=== PATIENT | male | born 1970 | race Caucasian/White ===

== ENCOUNTER 2019-12-21 14:05 | Outpatient (REF) | payer MEDICAID, SELFPAY ==
--- NOTE | 2019-12-21 14:30 | FL_ITS ---
EXAMINATION: MODIFIED BARIUM SWALLOW CLINICAL INFORMATION: Dysphagia COMPARISON: None TECHNIQUE: The barium swallow study is performed with speech pathology. The patient ingested varying consistencies of barium under fluoroscopic observation in the lateral projection. FINDINGS: Normal control of the liquid bolus with inversion of the epiglottis. No laryngeal penetration or aspiration. Total fluoroscopy time: 2 minutes. DAP: 2.206 IMPRESSION: Unremarkable swallow study. Correlate with the speech pathologist report for full details.
--- NOTE | 2019-12-21 16:09 | MHC.MBSS ---
Modified Barium Swallow Study Speech MBSS Documentation Start: 12/21/19 15:12 Freq: Status: Active Protocol: Activity Type Activity Date Activity User E-Sign Co-Sign Detail Recorded Client Recorded Date Recorded By Document 12/21/19 15:12 [email or web address] [id number] 12/21/19 15:58 [email or web address] 12/21/19 15:12 Adult Speech and Language Evaluation Referring provider Patricia Rocha MD Reason for Referral Dysphagia, unspecified Type of Treatment 28245 Modified Barium Swallow Study Date Patient First Became Aware of 12/21/19 Symptoms: Medical Diagnosis Cerebral Palsy, Muscular Dystrophy, HTN, GERD Primary Speech Language Diagnosis R13.11 Oral Phase Dysphagia Speech, Language, Cognition difficulties Understanding, Swallowing Dysphagia Specific Oral Phase Dysphagia Comments Pt is a 49 year old male with a history significant for cerebral palsy , muscular dystrophy, GERD , and HTN. Pt is nonverbal but understands Estonian and ASL. Pt was accompanied by his brother and an painting contractor was present during the evaluation . This evaluation was completed in conjunction with the radiologist. Per caregiver report, pt is able to self feed and has been coughing on both liquids and solids since August. An MBSS was recommended to rule in/out aspiration. Pt was given a sip of thin liquid in which no aspiration or penetration was observed. Timely AP transport and adequate labial seal were noted. Pt was given a bite of applesauce mixed with barium, a pureed solid. Interlabial escape was noted in addition to trace amounts of oral residue . Upon trials of ground/mech altered solids mixed with barium the following was noted: anterior spillage, prolonged oral phase, disorganized mastication, piecemeal deglutition, and moderate oral residue. Pt was observed to independently double swallow and was able to clear oral residue with a liquid wash. The same observations were made upon trials of regular solids, a cracker topped with barium paste. Pt was observed to independently take very large bites of solids (i.e. the entire cracker) even when told to take small bites. Based on the results of this evaluation, pt presents with moderate oral dysphagia characterized by disorganized mastication, prolonged oral phase, prolonged AP transport, anterior spillage to the vermilion border, piecemeal deglutition, and moderate oral residue. Pt's pharyngeal phase was noted to be WFL . No aspiration or penetration were visualized. Pre-eval Risk for Aspiration Reduced Cognition Pre-evaluation Dietary Consistencies Regular Pre-eval Liquid Intake Thin SL Adult Medical History Acid Reflux, Cerebral Palsy Recent Hospitalizations: If yes, enter No admitting diagnosis Respiratory Needs/Oxygen Delivery Room Air Patient Orientation Unable to Assess History What is your current employment status? Unknown What is the highest level of education Unknown/Unable you have completed? to report Assistive Devices in use Wheelchair Oral Motor, Secretions and Volitional Cough Oral Motor Exam Oral Motor Exam Unremarkable Facial Symmetry Symmetrical Facial Movement Controlled Mouth Occlusion Normal Oral-Facial Teeth Characteristics Intact/Normal Tongue Size Normal Clinical Observations An very brief oral mechanism exam was conducted. Pt was unable to comprehend directions to smile, stick his tongue out, or produce a volitional cough. Pt appeared to have natural dentition in adequate condition for mastication. Oral Phase Chopped/Advanced Food -Oral Phase Results ABN: Oral Phase Labial Seal A/P Transit Lingual Movement Rotary Masticatio n Premature Spillage Oral Residue Ground/Mechanically Altered Food -Oral Phase Results ABN: Oral Phase Labial Seal A/P Transit Lingual Movement Oral Residue WNL: Rotary Masticatio n Premature Spillage Pureed Food -Oral Phase Results ABN: Labial Seal WNL: Oral Phase A/P Transit Lingual Movement Rotary Masticatio n Premature Spillage Oral Residue Thin Liquid via Cup -Oral Phase Results WNL: Oral Phase Labial Seal A/P Transit Lingual Movement Rotary Masticatio n Premature Spillage Oral Residue Pharyngeal Phase Regular Food -Pharyngeal Phase WNL: Pharyngeal Phase Velopharyn geal Closure Tongue Base Retraction Laryngeal Excursion Epiglottal Deflection Pharyngeal Peristalsi s Valleculae Clearing Pyriform Clearing UES Opening Penetratio n Aspiration Ground/Mechanically Altered Food -Pharyngeal Phase WNL: Pharyngeal Phase Velopharyn geal Closure Tongue Base Retraction Laryngeal Excursion Epiglottal Deflection Pharyngeal Peristalsi s Valleculae Clearing Pyriform Clearing UES Opening Penetratio n Aspiration Pureed Food -Pharyngeal Phase WNL: Pharyngeal Phase Velopharyn geal Closure Tongue Base Retraction Laryngeal Excursion Epiglottal Deflection Pharyngeal Peristalsi s Valleculae Clearing Pyriform Clearing UES Opening Penetratio n Aspiration Thin Liquid via Cup -Pharyngeal Phase WNL: Pharyngeal Phase Velopharyn geal Closure Tongue Base Retraction Laryngeal Excursion Epiglottal Deflection Pharyngeal Peristalsi s Valleculae Clearing Pyriform Clearing UES Opening Penetratio n Aspiration Evaluation End Liquid Intake Recommendation Thin Dietary Recommendations Chopped/ Advanced (NDD3) Dysphagia Medication Administration Whole with Liquid Compensatory Swallowing Strategies Sitting Upright Recommended (90 deg), Double Swallow, Small Bites and Sips,Alternate Liquids/Solids ,Rate of Ingestion Change,Oral Check Level of Assist vs. Level of Total Independance Supervision (1: 1) Text Comment At this time, ACTIVITY MANAGER recommends CHOPPED/ ADVANCED (NDD3) solids and THIN liquids with pills WHO in LIQUID or PUREE depending on pt's preference. Total supervision during meal times is recommended to ensure the following aspiration precautions: -upright at 90 degrees when eating and drinking -SMALL bites and sips -alternate solids with liquids -slow rate of ingestion -avoid super sticky foods -oral cavity checks to ensure oral clearance -moisten foods with sauces and gravies for ease of mastication -limit portion size (i.e. give 1/4 meal at a time to reduce rate of ingestion and to ensure oral clearance) -double swallow if needed -frequent oral care Impact Prognosis Prognosis for Improvement Good - Patient Education Completed Yes Patient/Caregiver Education Described Results of Evaluation, Family/ Caregivers expressed understanding of results Depalletizer Operator Clinician/Clinical Yes: Aniya Carter M.A., CF-ACTIVITY MANAGER
== END 2019-12-21 14:06 | disposition home or self-care (01) ==
LOC: HO.XRAY 14:05
PROVIDERS: Visit Provider Family Medicine
DX: R13.11 Dysphagia, oral phase (principal); G80.9 Cerebral palsy, unspecified
CPT/HCPCS: 74230; 92611

== ENCOUNTER → 2020-05-20 09:38 | Outpatient (BNVA) | payer MEDICAID, SELFPAY | PROVIDERS: PCP Family Medicine; Visit Provider Nurse Practitioner ==

== ENCOUNTER → 2020-09-12 15:05 | Outpatient (BNVA) | payer MEDICAID, SELFPAY | PROVIDERS: PCP Family Medicine; Visit Provider Nurse Practitioner ==

== ENCOUNTER → 2020-09-13 15:05 | Outpatient (BNVA) | payer MEDICAID, SELFPAY | PROVIDERS: PCP Family Medicine; Visit Provider Nurse Practitioner ==

== ENCOUNTER → 2020-10-03 08:44 | Outpatient (BNVA) | payer MEDICAID, SELFPAY | PROVIDERS: PCP Family Medicine; Visit Provider Nurse Practitioner ==

== ENCOUNTER 2020-11-15 09:48 | Day surgery (SDC) | payer MEDICAID, SELFPAY ==
--- NOTE | 2020-11-14 08:43 | P.CONAN_ITS ---
Documented by User: Liza Snyder NP 11/14/20 08:44 HPI - Anesthesia Eval Consult details Narrative: 50yo M for ?Colonoscopy W/C bound d/t Cerebral palsy PMFSH Active Problems Active Problems: All Active Problems (Updated 11/08/20 @ 15:13 by Teresita Noyola, FELISHA) GERD (gastroesophageal reflux disease) (Acute) Irritable bowel syndrome with diarrhea (Acute) Cerebral palsy (Acute) HTN (hypertension), benign (Acute) Hx of colonoscopy (Acute) Past Medical History Medical History Cerebral palsy COVID-19 vaccine series completed Diarrhea HTN (hypertension) Mentally challenged Mute Family History Family History Father Heart problem Mother Breast cancer Surgical History Surgical History History of esophagogastroduodenoscopy (EGD) Hx of colonoscopy Social History Social History Are you a primary aged or disabled care worker to a significant other at home: No Do you presently have visiting nurse or other home services: No (Brother - cares for him) Alcohol intake: never Patient Tobacco Use Status: Never used Tobacco Use of substances other than those prescribed or required for medical reasons: No Have you been hit, kicked, punched, or otherwise hurt by someone within the past year? If so, by whom?: No Advance Directives: No Advance Directives Information Provided: No Advance Directives on File: No Advance Directives Date on File: 12/21/19 Recently lost weight without trying: No Eating poorly because of decreased appetite: No Nutrition Risks: No Nutritional Risk Meds Allergies Allergy/AdvReac Type Severity Reaction Status Date / Time No Known Allergies Allergy Verified 11/15/20 10:52 Home Medications Medication Instructions Recorded Confirmed Last Taken Type baclofen 20 mg tablet 20 mg PO DAILY 05/20/20 11/08/20 Unknown History ergocalciferol (vitamin D2) 50 mcg 50 mcg PO DAILY 05/20/20 11/08/20 Unknown History (2,000 unit) capsule lisinopril 40 mg tablet 40 mg PO DAILY 05/20/20 11/08/20 Unknown History Exam Exam Date and Time: November 14, 2020 0843 Assessment and Plan Assessment Anesthesia Assessment: Chart Reviewed Documented by User: Rose Arteaga MD 11/15/20 11:11 [facility] Past Medical History Medical History Cerebral palsy COVID-19 vaccine series completed Diarrhea HTN (hypertension) Mentally challenged Mute Family History Family History Father Heart problem Mother Breast cancer Family history of problems with anesthesia: No Surgical History Surgical History History of esophagogastroduodenoscopy (EGD) Hx of colonoscopy History of Problems with Anesthesia: No Social History Social History Are you a primary aged or disabled care worker to a significant other at home: No Do you presently have visiting nurse or other home services: No (Brother - cares for him) Alcohol intake: never Patient Tobacco Use Status: Never used Tobacco Use of substances other than those prescribed or required for medical reasons: No Have you been hit, kicked, punched, or otherwise hurt by someone within the past year? If so, by whom?: No Advance Directives: No Advance Directives Information Provided: No Advance Directives on File: No Advance Directives Date on File: 12/21/19 Recently lost weight without trying: No Eating poorly because of decreased appetite: No Nutrition Risks: No Nutritional Risk Meds Allergies Allergy/AdvReac Type Severity Reaction Status Date / Time No Known Allergies Allergy Verified 11/15/20 10:52 Home Medications Medication Instructions Recorded Confirmed Last Taken Type baclofen 20 mg tablet 20 mg PO DAILY 05/20/20 11/08/20 Unknown History ergocalciferol (vitamin D2) 50 mcg 50 mcg PO DAILY 05/20/20 11/08/20 Unknown History (2,000 unit) capsule lisinopril 40 mg tablet 40 mg PO DAILY 05/20/20 11/08/20 Unknown History Exam Airway Mallampati Class: II TM Dist: >3cm Neck ROM: Full Assessment and Plan Assessment Anesthesia Assessment: Anesthesia Plan Discussed Final Anesthetic Review Family History of Problems with Anesthesia: No History of Problems with Anesthesia: No NPO: Yes ASA Class: II Final Preanesthetic Review: No Changes in Pt Med Stat, Meds/Allgs Chart Reviewed, Consent Obtained/Reviewed and Anes Risks/Benef Reviewed Patient Risk: Low Procedure Risk: Low Assessment/Block/Sedation in SS: Assess/Block/Sedation-SS Anesthetic Plan Anesthetic Plan: MAC: Disposition: Standard PACU
[2020-11-15 11:03] VITALS: BP 117/85; PULSE 72; RESP 16; TEMP 36.6; O2SAT 97
--- NOTE | 2020-11-15 11:37 | MHC.SHP ---
Pre-Procedural Eval Section A Date of Service: 11/15/20 The patient is an INPATIENT: No The History & Physical has been completed within 30 days and I have reviewed it.: No Section B Chief Complaint: Colon cancer screening Details of Present Illness: Colon cancer screening Relevant Family History (Specify if Yes): Yes Relevant Social History: None Present Medications: see Short Stay Collaborative assessment Medical History: Significant History (GERD, cerebral palsy, hypertension) History of Previous Operations: Relevant previous surgery/procedure and date(s) (H/O colonoscopy History of appendectomy History of cholecystectomy History of facial surgery) Allergies: Allergies Allergy/AdvReac Type Severity Reaction Status Date / Time No Known Allergies Allergy Verified 11/15/20 10:52 Review of Systems Sugical H&P ROS: Negative: Constitution, Cardiovascular and Respiratory and Yes, Specify: Gastrointestinal (diarrhea) Exam Surgical H&P Exam: Normal: Heart, Normal: Lungs, Normal: Extremities and Normal: Abdomen Plan Diagnosis/Plan: Unchanged I have reviewed the history and physical and performed a pertinent physical examination on my patient. No changes have occurred unless specified.
--- NOTE | 2020-11-15 11:47 | P.OP_ITS ---
Operative Note Operative Note Date of Service: 11/15/20 Narrative: Pre-op diagnosis:?Colon cancer screening, family history colon polyps Post-op diagnosis:?other (Colon polyp, diverticulosis) Procedure:? COLONOSCOPY TILL CECUM WITH BIOPSIES AND SNARE POLYPECTOMY Consent: Indications for the procedure and potential complications of bleeding, perforation, reaction to medications and missed diagnosis were discussed with the patient's brother with the help of a a video sign l anguage screwhead polisher? informed consent was obtained. Instrument: Olympus PCF H 190 L variable stiffness pediatric colonoscope Monitoring: Vital signs and clinical assessment, intermittent blood pressure monitoring, continuous EKG monitoring, Pulse oximetry and Carbon Dioxide monitoring were done throughout the procedure. Colon withdrawl time was 17 minutes. Procedure: The patient was placed in the left lateral decubitis position and pre-procedure medications were administered. After a digital rectal examination of the ano-rectum, the video colonoscope was inserted into the rectum and advanced through the colon to the cecum. The colonoscope was slowly withdrawn in a retrograde panoramic fashion and the colon mucosa was carefully examined including a retroflexed view of the rectum. Findings and interventions are described below. Procedure Difficulty: Without difficulty Findings: Terminal Ileum: Not evaluated Cecum:? Normal Ascending Colon:? Normal Transverse Colon:? Normal Descending Colon:? Normal Sigmoid Colon:? A 12-15 mm sessile polyp at 18 cms removed with a hot snare. Moderate diverticulosis Rectum:? Normal Ano-rectum:? Normal Colon preparation:? Good? after some irrigation Impression and Post Procedure Diagnosis: Colonoscopy Findings: One medium sized polyp removed Moderate diverticulosis seen in the sigmoid colon Random biopsies were obtained from the colon to check for microscopic colitis Plan: Await pathology results Patient has an appointment on 11/26/20 in the GI Clinic with? Kellen Gonzalez NP? . Repeat Colonoscopy interval based on path results - in 3 years if polyp is adenomatous and 10 years if polyps are hyperplastic. Above findings were reviewed with the patient's brother with the help of a video design director and colon polyps and diverticulosis handouts were given in the discharge area Surgeon:?Deric Watts MD Anesthesia:?[facility] (Tiny & Dr Arteaga) Was an Accounting Professional used for this Procedure?:?Yes Accounting Professional:?Mary Valenzuela Estimated blood loss (mL):?0 Pathology:?other (a: random colon bxs r/o microscopic colitis? b: sigmoid colon polyp) Condition:?stable Disposition:?PACU
[2020-11-15 12:25] VITALS: BP 94/53; PULSE 77; RESP 11; TEMP 36.3; O2SAT 97
[2020-11-15 12:40] VITALS: BP 122/85; PULSE 80; RESP 16; TEMP 36.3; O2SAT 100
== END 2020-11-15 13:48 | disposition home or self-care (01) ==
PROVIDERS: PCP Family Medicine; Visit Provider Internal Medicine Gastroenterology
PROC: 0DJD8ZZ Inspection of Lower Intestinal Tract, Via Natural or Artificial Opening Endoscopic (ICD-10-PCS; CPT 45378; principal; 2020-11-15 11:00)
DX: Z12.11 Encounter for screening for malignant neoplasm of colon (principal); D12.5 Benign neoplasm of sigmoid colon; K57.30 Diverticulosis of large intestine without perforation or abscess without bleeding; Z83.71 Family history of colonic polyps
CPT/HCPCS: 45385; 45380; 88305

== ENCOUNTER → 2020-11-26 15:07 | Outpatient (BNVA) | payer MEDICAID, SELFPAY | PROVIDERS: PCP Family Medicine; Visit Provider Nurse Practitioner ==

== ENCOUNTER → 2021-06-10 09:44 | Outpatient (BNVA) | payer MEDICAID, SELFPAY | PROVIDERS: PCP Family Medicine; Referring Provider Family Medicine; Visit Provider Nurse Practitioner | DX: K58.0 Irritable bowel syndrome with diarrhea (principal); K21.9 Gastro-esophageal reflux disease without esophagitis; Z86.010 Personal history of colon polyps; Z79.899 Other long term (current) drug therapy | CPT/HCPCS: 99212 ==

== ENCOUNTER → 2022-02-03 12:32 | Outpatient (BNVA) | payer MEDICAID, SELFPAY | PROVIDERS: PCP Family Medicine; Visit Provider Nurse Practitioner | DX: K21.9 Gastro-esophageal reflux disease without esophagitis (principal); K58.0 Irritable bowel syndrome with diarrhea; D12.6 Benign neoplasm of colon, unspecified | CPT/HCPCS: 99212 ==

== ENCOUNTER → 2022-08-04 12:40 | Outpatient (BNVA) | payer MEDICAID, SELFPAY | PROVIDERS: PCP Family Medicine; Visit Provider Nurse Practitioner | DX: K21.9 Gastro-esophageal reflux disease without esophagitis (principal); K58.0 Irritable bowel syndrome with diarrhea; D12.6 Benign neoplasm of colon, unspecified; Z98.890 Other specified postprocedural states | CPT/HCPCS: 99212 ==

== ENCOUNTER 2023-02-09 12:54 | Outpatient (AMB) | payer MEDICAID, SELFPAY ==
--- NOTE | 2023-02-09 13:00 | A.OFFVIS_ITS ---
Intake Vital Signs 02/09/23 13:18 Height 5 ft 8 in Weight 140 lb BMI 21.3 BP 117/71 Blood Pressure Location Lt brachial Position Sitting Pulse 71 Intake Visit Reasons: 6 month follow up Intake Note: Wayne presents in the office as a 6 month follow up. CC: They do not have any concerns for Wayne at this time. Human Resources Clerk Required: Yes Human Resources Clerk Name: Rossi Sellers Allergies No Known Allergies Allergy (Verified 02/09/23 13:15) HPI 6 month follow up HPI Details Assessment & Plan (1) GERD (gastroesophageal reflux diseas e): Code(s): K21.9 - Gastro-esophageal reflux disease without esophagitis Plan: [phone] (solar energy systems designer line). ASL #[id number] He is here with his brother and he continues to do well. He remains satisfied with the Carafate 2 pills twice a day along with Imodium and fiber for diarrhea and is pantoprazole 40 mg twice a day for his heartburn. He will be due for colonoscopy in 2023 so we will discuss this at the next visit. His brother was advised that this is upcoming since a 3 year repeat was required possibly due to the size of his last tubular adenoma removed. Return office visit in 6 months. . (2) Irritable bowel syndrome with diarrh ea: Code(s): K58.0 - Irritable bowel syndrome with diarrhea (3) Tubular adenoma of colon: Comment: 11/2020 scope greater than 1 cm sessile lesion repeat in 3 years Code(s): D12.6 - Benign neoplasm of colon, unspecified (4) Hx of colonoscopy: Comment: 2020=TA repeat in 3 years; 2012 negative scope, brother just had TA Code(s): Z98.890 - Other specified postprocedural states Medications: Refilled loperamide (Anti-D iarrheal (loperami de)) 4 mg (2 x 2 mg) PO BID 112 tabs 6RF for diarrhea K58.0 - Irritable bowel syndrome wit h diarrhea pantoprazole 40 mg PO BID 60 t abs 6RF K21.9 - Gastro-eso phageal reflux dis ease without esoph agitis sucralfate 2 grams (2 x 1 gra m) PO BID 112 tabs 6RF K58.0 - Irritable bowel syndrome wit h diarrhea TODAY'S VISIT [phone] (solar energy systems designer line). CT MRI TECHNOLOGIST#Live in person. Continues to do well on all meds, brother who is head piece assembler is pleased and Wayne is cheerful and happy. He remains satisfied with the Carafate 2 pills twice a day along with Imodium and fiber for diarrhea and is pantoprazole 40 mg twice a day for his heartburn. He will be due for repeat scope next year will discuss at next visit Return office visit in 6 months. [facility] Medical History COVID-19 vaccine series completed Diarrhea Mute Mentally challenged Cerebral palsy HTN (hypertension) Surgical History History of esophagogastroduodenoscopy (EGD) Hx of colonoscopy Family History Father Heart problem Mother Breast cancer Are you a primary occasional caregiver to a significant other at home: No Do you presently have visiting nurse or other home services: No (Brother - cares for him) Alcohol intake: never Patient Tobacco Use Status: Never used Tobacco Advance Directives Date on File: 12/21/19 Review of Systems Const Denies fatigue, Denies fever(s), Denies night sweats, Denies poor appetite and Denies weight loss ENT Reports Normal hearing present, Denies dental pain, Denies dysphagia, Denies hearing loss, Denies mouth pain, Denies odynophagia, Denies throat swelling, Denies tongue swelling and Reports other (Dentition adequate) Card Reports no additional complaints Resp Reports no additional complaints GI Denies abdominal pain, Denies melena, Denies bloating, Denies hematochezia, Denies constipation, Denies GI cramping, Denies dysphagia, Denies excessive flatus, Denies early satiety, Reports heartburn, Reports diarrhea, Denies nausea, Denies odynophagia, Denies vomiting and Denies hematemesis Musc Reports atrophy, Reports limited range of motion and Reports muscle weakness Skin/Breast Denies pruritus, Denies lesions, Denies rash and Denies jaundice Neuro Reports Normal hearing present and Denies Abnormal speech present Endo Denies fatigue Aller/Immun Denies throat swelling and Denies tongue swelling Physical Exam Vital Signs: Last Vital Signs Pulse 71 02/09/23 13:18 BP 117/71 02/09/23 13:18 BMI result Body Mass Index 21.3 Const General: cooperative, no acute distress, well developed and well groomed Nutritional Appearance: average body habitus and well nourished Orientation/consciousness: oriented to person, oriented to place and oriented to time Limitations: No language barrier, wheelchair and other limitations (Cognitive limitations) HEENT Head: Yes normocephalic and Yes atraumatic Eyes General: appearance normal, both eyes and all related structures Pupils: Equal, round and reactive pupils present Neck Neck: Yes normal visual inspection and Yes no lymphadenopathy Thyroid: Thyroid normal Resp Effort & Inspection: normal respiratory effort and able to speak in complete sentences Auscultation: clear to auscultation bilaterally Cardio Rate: regular rate Rhythm: regular rhythm Heart sounds: Normal, physiologic split S2 sound present Peripheral pulses: radial pulses present and posterior tibial pulses present GI Inspection: No distended and No Abdominal panniculus present Palpation (GI): Soft to palpation, nontender, no guarding, not rigid and No hepatosplenomegaly present Percussion: Yes normal to percussion Auscultation: normal bowel sounds Rectal Exam - Male: Yes deferred Skin General skin exam: no rashes or lesions noted, turgor normal, skin not dry, no jaundice, No spider nevi and no striae Rashes: no rashes Nails: normal Neuro General: oriented to person, oriented to place and oriented to time Cranial nerves: Yes Equal, round and reactive pupils present and Yes Normal hearing present Speech: No Abnormal speech present Extrem General: Yes normal to inspection, No clubbing, No cyanosis and No edema Psych Appearance: grossly normal and well kempt Mental Status: mental status grossly normal Speech and movement: Normal speech and movement present Affect: normal affect Attitude: cooperative Thought process: Normal thought process present and not confabulating Thought content: Normal thought content present Insight: Limited insight present (Psych) Judgement: Limited judgement present (Psych) Assessment & Plan Assessment & Plan (1) Irritable bowel syndrome with diarrhea: Code(s): K58.0 - Irritable bowel syndrome with diarrhea Plan: [phone] (solar energy systems designer line). CT MRI TECHNOLOGIST#Live in person. Continues to do well on all meds, brother who is head piece assembler is pleased and Wayne is cheerful and happy. He remains satisfied with the Carafate 2 pills twice a day along with Imodium and fiber for diarrhea and is pantoprazole 40 mg twice a day for his heartburn. He will be due for repeat scope next year will discuss at next visit Return office visit in 6 months. (2) GERD (gastroesophageal reflux disease): Code(s): K21.9 - Gastro-esophageal reflux disease without esophagitis (3) Tubular adenoma of colon: Comment: 11/2020 scope greater than 1 cm sessile lesion repeat in 3 years Code(s): D12.6 - Benign neoplasm of colon, unspecified (4) Cerebral palsy: Code(s): G80.9 - Cerebral palsy, unspecified Medications: Refilled sucralfate 2 grams (2 x 1 gram) PO BID 112 tabs 6RF K58.0 - Irritable bowel syndrome with diarrhea methylcellulose (laxative) (Fiber Therapy (methylcellulose)) 1,000 mg (2 x 500 mg) PO BID 112 tabs 6RF K58.0 - Irritable bowel syndrome with diarrhea loperamide (Anti-Diarrheal (loperamide)) 4 mg (2 x 2 mg) PO BID 112 tabs 6RF for diarrhea K58.0 - Irritable bowel syndrome with diarrhea pantoprazole 40 mg PO BID 60 tabs 6RF K21.9 - Gastro-esophageal reflux disease without esophagitis Coding Level of Care Code Est Pt Level 3 (84078) Diagnoses Irritable bowel syndrome with diarrhea K58.0 GERD (gastroesophageal reflux disease) K21.9 Tubular adenoma of colon D12.6 Cerebral palsy G80.9
[2023-02-09 13:18] VITALS: BP 117/71; PULSE 71; BMI 21.3
== END 2023-02-09 13:40 | disposition home or self-care (01) ==
PROVIDERS: PCP Family Medicine; Visit Provider Nurse Practitioner
DX: K58.0 Irritable bowel syndrome with diarrhea (principal); K21.9 Gastro-esophageal reflux disease without esophagitis; D12.6 Benign neoplasm of colon, unspecified; G80.9 Cerebral palsy, unspecified
CPT/HCPCS: 99213

== ENCOUNTER → 2023-02-09 12:54 | Outpatient (BNVA) | payer MEDICAID, SELFPAY | PROVIDERS: PCP Family Medicine; Visit Provider Nurse Practitioner | DX: K58.0 Irritable bowel syndrome with diarrhea (principal); K21.9 Gastro-esophageal reflux disease without esophagitis; D12.6 Benign neoplasm of colon, unspecified; G80.9 Cerebral palsy, unspecified | CPT/HCPCS: 99212 ==

== ENCOUNTER 2023-04-07 11:38 | Outpatient (REF) | payer MEDICAID, SELFPAY ==
[2023-04-07 13:49] LABS: Basophils Percent Auto 0.5 % (0-2); Eosinophils Absolute Auto 0.1 X10*3/uL (0.0-0.4); Eosinophils Percent Auto 1.5 % (0-4); Hematocrit 44.9 % (42.0-52.0); Imm Gran Abs Auto 0.13 X10*3/uL (0.00-0.03); Imm Gran Pct Auto 1.6 % (0.0-0.4); Lymphocytes Absolute Auto 2.2 X10*3/uL (1.2-4.9); Lymphocytes Percent Auto 27.6 % (20-40); MANUAL DIFF FLAG NO; Mean Corpuscular HGB Conc 33.4 g/dl (31.0-36.0); Mean Corpuscular Hemoglobin 30.7 pg (27.0-33.0); Mean Platelet Volume 10.5 fL (9.4-12.4); Monocytes Absolute Auto 0.8 X10*3/uL (0.1-1.2); Monocytes Percent Auto 9.9 % (2-11); Neutrophils Absolute Auto 4.7 x10*3/uL (2.0-8.3); Neutrophils Percent Auto 58.9 % (45-73); Platelet Count 307 X10*3/uL (160-400); Red Blood Count 4.88 X10*6/uL (4.60-5.80); Red Cell Distribution Width 13.2 % (11.0-16.0)
[2023-04-07 14:22] LABS: Alanine Aminotransferase 43 U/L (0-40); Albumin Level 4.2 g/dL (3.5-5.0); Alkaline Phosphatase 97 U/L (39-117); Anion Gap 11 (12-20); Aspartate Amino Transferase 24 U/L (5-37); Bilirubin Direct 0.2 mg/dL (0.0-0.5); Bilirubin Total 0.6 mg/dL (0.0-1.0); Blood Urea Nitrogen 11 mg/dL (9-16); Calcium 9.9 mg/dL (8.4-10.2); Carbon Dioxide 27 mmol/L (22-29); Chloride 104 mmol/L (96-108); Cholesterol 180 mg/dL (<200); Estimated Glomerular Filt Rate > 60; Glucose Random 81 mg/dL (60-115); HDL Cholesterol 28 mg/dL (>40); LDL Cholesterol Calculated 115 mg/dL (<100); Sodium 138 mmol/L (135-145); TSH reflex Free T4 0.93 uIU/mL (0.32-4.0); Total Protein 7.7 g/dL (6.5-8.0); Triglycerides 185 mg/dL (<150); Vitamin D 25-OH Total 54.1 ng/mL (>30)
== END 2023-04-07 11:39 | disposition home or self-care (01) ==
LOC: HO.HHCL 11:38
PROVIDERS: Visit Provider Family Medicine
DX: Z00.00 Encounter for general adult medical examination without abnormal findings (principal); R25.1 Tremor, unspecified; D36.9 Benign neoplasm, unspecified site; E55.9 Vitamin D deficiency, unspecified; I10 Essential (primary) hypertension
CPT/HCPCS: 36415; 80048; 80061; 80076; 82306; 84443; 85025

== ENCOUNTER 2023-08-10 12:25 | Outpatient (AMB) | payer MEDICAID, SELFPAY ==
--- NOTE | 2023-08-10 12:33 | MHC.OFFVIS ---
Vital Signs 08/10/23 12:40 Height 5 ft 8 in Weight 155 lb BMI 23.6 BP 135/75 Blood Pressure Location Rt brachial Position Sitting Pulse 62 Intake Visit Reasons: 6 month follow up Intake Note: Wayne presents in office today in 6 months follow up of GERD. CC: Patient is non verbal, He is here with his brother today, he states that the patient is well and denies having any new GI concerns today. Rope Silica Machine Operator Required: Yes Rope Silica Machine Operator Language: Marketing Outreach Coordinator Name: Cielo [id number] Accompanied by: Brother Allergies No Known Allergies Allergy (Verified 08/10/23 12:53) HPI HPI 6 month follow up: Details: Assessment & Plan (1) Irritable bowel syndrome with diarrhea: Code(s): K58.0 - Irritable bowel syndrome with diarrhea Plan: [phone] (event designer line). 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 Continues to do well on all meds, brother who is cat scanner operator is pleased and Wayne is cheerful and happy. He remains satisfied with the Carafate 2 pills twice a day along with Imodium and fiber for diarrhea and is pantoprazole 40 mg twice a day for his heartburn. He will be due for repeat scope next year will discuss at next visit Return office visit in 6 months. (2) GERD (gastroesophageal reflux disease): Code(s): K21.9 - Gastro-esophageal reflux disease without esophagitis (3) Tubular adenoma of colon: Comment: 11/2020 scope greater than 1 cm sessile lesion repeat in 3 years Code(s): D12.6 - Benign neoplasm of colon, unspecified (4) Cerebral palsy: Code(s): G80.9 - Cerebral palsy, unspecified Medications: Refilled sucralfate 2 grams (2 x 1 gram) PO BID 112 tabs 6RF K58.0 - Irritable bowel syndrome with diarrhea methylcellulose (laxative) (Fiber Therapy (methylcellulose)) 1,000 mg (2 x 500 mg) PO BID 112 tabs 6RF K58.0 - Irritable bowel syndrome with diarrhea loperamide (Anti-Diarrheal (loperamide)) 4 mg (2 x 2 mg) PO BID 112 tabs 6RF for diarrhea K58.0 - Irritable bowel syndrome with diarrhea pantoprazole 40 mg PO BID 60 tabs 6RF K21.9 - Gastro-esophageal reflux disease without esophagitis Laboratory Tests 04/07/23 04/07/23 11:39 11:42 WBC 8.0 Hgb 15.0 Hct 44.9 MCV 92.0 MCH 30.7 Plt Count 307 Estimated GFR > 60 Total Bilirubin 0.6 Direct Bilirubin 0.2 AST 24 ALT 43 H Alkaline Phosphatase 97 TSH 0.93 TODAY'S VISIT [phone] (event designer line). 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 He is due for repeat colonoscopy this year, they are agreeable to having this scheduled. There are no prior problems with anesthesia or sedation. They deny any cardiac or respiratory problems. No ID problems. He had large TA's and has a FXH of colon polyps. Return office visit in 6 months. [facility] Medical History (Updated 08/10/23 @ 14:16 by MARCELLUS Orta) COVID-19 vaccine series completed Diarrhea Mute Mentally challenged Cerebral palsy HTN (hypertension) Surgical History History of esophagogastroduodenoscopy (EGD) Hx of colonoscopy Family History Father Heart problem Mother Breast cancer Social History Are you a primary day care attendant to a significant other at home: No Do you presently have visiting nurse or other home services: No (Brother - cares for him) Alcohol intake: never Patient Tobacco Use Status: Never used Tobacco Advance Directives Date on File: 12/21/19 Review of Systems Const Denies fatigue, Denies fever(s), Denies night sweats, Denies poor appetite and Denies weight loss ENT Reports Normal hearing present, Denies dysphagia, Denies odynophagia, Denies throat swelling and Denies tongue swelling Card Reports no additional complaints Resp Reports no additional complaints GI Details: Denies abdominal pain, Denies melena, Denies bloating, Denies hematochezia, Denies constipation, Denies GI cramping, Denies dysphagia, Denies excessive flatus, Denies early satiety, Reports heartburn, Reports diarrhea, Denies nausea, Denies odynophagia, Denies vomiting and Denies hematemesis Musc Reports abnormal gait, Reports deformity and Reports arthralgias Skin/Breast Denies pruritus, Denies lesions, Denies rash and Denies jaundice Neuro Reports Normal hearing present, Denies Abnormal speech present, Reports abnormal gait and Reports lack of coordination Endo Denies fatigue Aller/Immun Denies throat swelling and Denies tongue swelling Physical Exam Vital Signs: Last Vital Signs Pulse 62 08/10/23 12:40 BP 135/75 08/10/23 12:40 BMI result Body Mass Index 23.6 Const General: cooperative, no acute distress, well developed and well groomed Nutritional Appearance: average body habitus and well nourished Orientation/consciousness: oriented to person, oriented to place and oriented to time Limitations: language barrier, wheelchair and other limitations HEENT Head: Yes normocephalic and Yes atraumatic Eyes General: appearance normal, both eyes and all related structures Pupils: Equal, round and reactive pupils present Neck Neck: Yes normal visual inspection and Yes no lymphadenopathy Thyroid: Thyroid normal Resp Effort & Inspection: normal respiratory effort and able to speak in complete sentences Auscultation: clear to auscultation bilaterally Cardio Rate: regular rate Rhythm: regular rhythm Heart sounds: Normal, physiologic split S2 sound present Peripheral pulses: radial pulses present and posterior tibial pulses present GI Inspection: No distended and No Abdominal panniculus present Palpation (GI): Soft to palpation, nontender, no guarding, not rigid and No hepatosplenomegaly present Percussion: Yes normal to percussion Auscultation: normal bowel sounds Rectal Exam - Male: Yes deferred Skin General skin exam: no rashes or lesions noted, turgor normal, skin not dry, no jaundice, No spider nevi and no striae Rashes: no rashes Nails: normal Neuro General: oriented to person, oriented to place and oriented to time Cranial nerves: Yes Equal, round and reactive pupils present and Yes Normal hearing present Speech: No Abnormal speech present Extrem General: No clubbing, No cyanosis and No edema Psych Appearance: grossly normal and well kempt Mental Status: other Speech and movement: Mute speech present Affect: normal affect Attitude: cooperative Thought process: Other thought process findings present Thought content: Normal thought content present and other Insight: Limited insight present (Psych) and Poor insight present (Psych) Judgement: Limited judgement present (Psych) and Poor judgement present (Psych) Results Reviewed Results Reviewed: Laboratory Tests 04/07/23 04/07/23 11:39 11:42 WBC 8.0 Hgb 15.0 Hct 44.9 MCV 92.0 MCH 30.7 Plt Count 307 Estimated GFR > 60 Total Bilirubin 0.6 Direct Bilirubin 0.2 AST 24 ALT 43 H Alkaline Phosphatase 97 TSH 0.93 Assessment & Plan Assessment & Plan (1) Tubular adenoma of colon: Comment: 11/2020 scope greater than 1 cm sessile lesion repeat in 3 years Code(s): D12.6 - Benign neoplasm of colon, unspecified Category: Medical (2) GERD (gastroesophageal reflux disease): Code(s): K21.9 - Gastro-esophageal reflux disease without esophagitis Category: Medical (3) Diarrhea: Code(s): R19.7 - Diarrhea, unspecified Category: Medical (4) Family history of polyps in the colon: Code(s): Z83.719 - Family history of colon polyps, unspecified Category: Medical (5) Pre-op examination: Code(s): Z01.818 - Encounter for other preprocedural examination Category: Medical Plan [phone] (event designer line). 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 He is due for repeat colonoscopy this year, they are agreeable to having this scheduled. There are no prior problems with anesthesia or sedation. They deny any cardiac or respiratory problems. No ID problems. He had large TA's and has a FXH of colon polyps. Orders: Orders Colonoscopy - GI Use Only Today D12.6 - Benign neoplasm of colon, unspecified Medications: New peg 3350-electrolytes 236-22.74-6.74 -5.86 gram (Golytely) until fecal effluent is clear; do not exceed a total volume of 2,000 mL 240 mL PO Q10M 4,000 mL 0RF 1 day Z12.11 - Encounter for screening for malignant neoplasm of colon bisacodyl (Dulcolax (bisacodyl)) 10 mg (2 x 5 mg) PO BEDTIME 4 tabs 0RF 2 days Refilled methylcellulose (laxative) (Fiber Therapy (methylcellulose)) 1,000 mg (2 x 500 mg) PO BID 112 tabs 6RF K58.0 - Irritable bowel syndrome with diarrhea pantoprazole 40 mg PO BID 60 tabs 6RF K21.9 - Gastro-esophageal reflux disease without esophagitis sucralfate 2 grams (2 x 1 gram) PO BID 112 tabs 6RF K58.0 - Irritable bowel syndrome with diarrhea loperamide (Anti-Diarrheal (loperamide)) 4 mg (2 x 2 mg) PO BID 112 tabs 6RF for diarrhea K58.0 - Irritable bowel syndrome with diarrhea Coding Level of Care Code Est Pt Level 4 (10458) Diagnoses Tubular adenoma of colon D12.6 GERD (gastroesophageal reflux disease) K21.9 Diarrhea R19.7 Family history of polyps in the colon Z83.719 Pre-op examination Z01.818
[2023-08-10 12:40] VITALS: BP 135/75; PULSE 62; BMI 23.6
== END 2023-08-10 13:16 | disposition home or self-care (01) ==
PROVIDERS: PCP Family Medicine; Visit Provider Nurse Practitioner
DX: D12.6 Benign neoplasm of colon, unspecified (principal); K21.9 Gastro-esophageal reflux disease without esophagitis; R19.7 Diarrhea, unspecified; Z83.719 Family history of colon polyps, unspecified; Z01.818 Encounter for other preprocedural examination
CPT/HCPCS: 99214

== ENCOUNTER → 2023-08-10 12:25 | Outpatient (BNVA) | payer MEDICAID, SELFPAY | PROVIDERS: PCP Family Medicine; Visit Provider Nurse Practitioner | DX: Z01.818 Encounter for other preprocedural examination (principal); K21.9 Gastro-esophageal reflux disease without esophagitis; D12.6 Benign neoplasm of colon, unspecified; R19.7 Diarrhea, unspecified; Z83.719 Family history of colon polyps, unspecified | CPT/HCPCS: 99212 ==

== ENCOUNTER 2024-02-04 08:29 | Day surgery (SDC) | payer MEDICAID, SELFPAY ==
[2024-02-02 11:45] VITALS: BMI 23.6
--- NOTE | 2024-02-02 14:16 | P.CONAN_ITS ---
Documented by User: Liza Snyder NP 02/02/24 14:17 HPI - Anesthesia Eval Consult details Narrative: 53yo M for Colonoscopy Cerbral palsy / alternative medicine practitioner required [facility] Active Problems Active Problems: All Active Problems Pre-op examination (Acute) Family history of polyps in the colon (Acute) Diarrhea (Acute) Tubular adenoma of colon (Acute) GERD (gastroesophageal reflux disease) (Acute) Irritable bowel syndrome with diarrhea (Acute) Cerebral palsy (Acute) HTN (hypertension), benign (Acute) Hx of colonoscopy (Acute) Past Medical History Medical History COVID-19 vaccine series completed Diarrhea Mute Mentally challenged Cerebral palsy HTN (hypertension) Family History Family History Father Heart problem Mother Breast cancer Family history of problems with anesthesia: No Surgical History Surgical History History of esophagogastroduodenoscopy (EGD) Hx of colonoscopy History of Problems with Anesthesia: No Social History Social History Are you a primary career services manager to a significant other at home: No Do you presently have visiting nurse or other home services: No Alcohol intake: never Patient Tobacco Use Status: Never used Tobacco Use of substances other than those prescribed or required for medical reasons: No Have you been hit, kicked, punched, or otherwise hurt by someone within the past year? If so, by whom?: No Spiritual Healthcare Practices: unknown [facility] Healthcare Practices: Restorationist Cultural Healthcare Practices: unknown Are you DNR?: No Advance Directives Information Provided: Yes (as above noted) Advance Directives on File: No Advance Directives Date on File: 12/21/19 Recently lost weight without trying: No Eating poorly because of decreased appetite: No Nutrition Risks: No Nutritional Risk Poor oral hygiene: No (saw dentist last week) Meds Allergies Allergy/AdvReac Type Severity Reaction Status Date / Time No Known Allergies Allergy Verified 08/10/23 12:53 Home Medications ?Medication ?Instructions ?Recorded ?Confirmed ?Last Taken ?Type baclofen 20 mg tablet 20 mg PO DAILY 05/20/20 02/02/24 Unknown History lisinopril 40 mg tablet 40 mg PO DAILY 05/20/20 02/02/24 Unknown History tizanidine 4 mg tablet 4 mg PO TID 02/03/22 02/02/24 Unknown History cholecalciferol (vitamin D3) 25 25 mcg PO DAILY 08/04/22 02/02/24 Unknown History mcg (1,000 unit) capsule (Vitamin D3) Exam Height,Weight and Vital Signs: Height 5 ft 8 in Weight 70.307 kg Assessment and Plan Assessment Anesthesia Assessment: Chart Reviewed Final Anesthetic Review Family History of Problems with Anesthesia: No History of Problems with Anesthesia: No Documented by User: Shandra Calvillo MD 02/04/24 10:33 PMFSH Past Medical History Medical History COVID-19 vaccine series completed Diarrhea Mute Mentally challenged Cerebral palsy HTN (hypertension) Family History Family History Father Heart problem Mother Breast cancer Surgical History Surgical History History of esophagogastroduodenoscopy (EGD) Hx of colonoscopy Social History Social History Are you a primary career services manager to a significant other at home: No Do you presently have visiting nurse or other home services: No Alcohol intake: never Patient Tobacco Use Status: Never used Tobacco Use of substances other than those prescribed or required for medical reasons: No Have you been hit, kicked, punched, or otherwise hurt by someone within the past year? If so, by whom?: No Spiritual Healthcare Practices: unknown [employer] Healthcare Practices: Restorationist Cultural Healthcare Practices: unknown Are you DNR?: No Advance Directives Information Provided: Yes (as above noted) Advance Directives on File: No Advance Directives Date on File: 12/21/19 Recently lost weight without trying: No Eating poorly because of decreased appetite: No Nutrition Risks: No Nutritional Risk Poor oral hygiene: No (saw dentist last week) Meds Allergies Allergy/AdvReac Type Severity Reaction Status Date / Time No Known Allergies Allergy Verified 08/10/23 12:53 Home Medications ?Medication ?Instructions ?Recorded ?Confirmed ?Last Taken ?Type baclofen 20 mg tablet 20 mg PO DAILY 05/20/20 02/02/24 Unknown History lisinopril 40 mg tablet 40 mg PO DAILY 05/20/20 02/02/24 Unknown History tizanidine 4 mg tablet 4 mg PO TID 02/03/22 02/02/24 Unknown History cholecalciferol (vitamin D3) 25 25 mcg PO DAILY 08/04/22 02/02/24 Unknown History mcg (1,000 unit) capsule (Vitamin D3) Exam Airway Mallampati Class: III TM Dist: >3cm Neck ROM: Full Loose/Missing/Broken Teeth: Yes and Upper Heart: RRR Lungs: CTA Assessment and Plan Assessment Anesthesia Assessment: Anesthesia Plan Discussed Final Anesthetic Review NPO: Yes ASA Class: III Final Preanesthetic Review: Meds/Allgs Chart Reviewed, Consent Obtained/Reviewed and Anes Risks/Benef Reviewed Patient Risk: Intermediate Procedure Risk: Low Anesthetic Plan Anesthetic Plan: MAC: Disposition: Standard PACU
[2024-02-04 09:09] VITALS: BMI 22.0
[2024-02-04 09:17] VITALS: BP 123/82; PULSE 63; RESP 18; TEMP 36; O2SAT 100
[2024-02-04] MEDS: Lactated Ringers 1,000 ML 100 ML IVCONT (09:21)
--- NOTE | 2024-02-04 10:21 | MHC.SHP ---
Pre-Procedural Eval Section A - 24 Hr Update-Section A only Date of Service: 02/04/24 Section B - Complete if H&P > 30 days Chief Complaint: Surveillance for colon polyps Relevant Family History (Specify if Yes): No Relevant Social History: None Present Medications: see Short Stay Collaborative assessment Medical History: Significant History (Diarrhea Mute Mentally challenged Cerebral palsy HTN (hypertension)) History of Previous Operations: Relevant previous surgery/procedure and date(s) (History of EGD and colonoscopy) Allergies: Allergies Allergy/AdvReac Type Severity Reaction Status Date / Time No Known Allergies Allergy Verified 08/10/23 12:53 Review of Systems Sugical H&P ROS: Negative: Cardiovascular, Respiratory and Gastrointestinal and Yes, Specify: Constitution (non verbal) Exam Surgical H&P Exam: Normal: Heart, Normal: Lungs, Normal: Extremities and Normal: Abdomen Plan Diagnosis/Plan: Unchanged I have reviewed the history and physical and performed a pertinent physical examination on my patient. No changes have occurred unless specified. Time Spent With Patient Time: Total time managing care of this patient today ____ minutes.
[2024-02-04 11:00] VITALS: BP 95/48; PULSE 64; RESP 12; TEMP 36.1; O2SAT 97
--- NOTE | 2024-02-04 11:00 | P.OPN-COLO_ITS ---
Colonoscopy Operative Note Operative Note Date of Service: 02/04/24 Narrative: COLONOSCOPY TILL CECUM Pre-op diagnosis: Surveillance of colon polyps. Post-op diagnosis:? Diverticulosis, hemorrhoids Endoscopist:? Deric Watts MD Anesthesia:?MAC Consent: Indications for the procedure and potential complications of bleeding, perforation, reaction to medications and missed diagnosis were discussed with the patient's brother and HCP, Sanjay Chua with the help of a plastics design engineer and informed consent was obtained. Instrument: Olympus PCF H 190 L variable stiffness pediatric colonoscope Monitoring: Vital signs and clinical assessment, intermittent blood pressure monitoring, continuous EKG monitoring, Pulse oximetry and Carbon Dioxide monitoring were done throughout the procedure. Please see anesthesia flowsheet. Colon withdrawl time was 10 minutes. Procedure: The patient was placed in the left lateral decubitis position and pre-procedure medications were administered. After a digital rectal examination of the ano-rectum, the video colonoscope was inserted into the rectum and advanced through the colon to the cecum. The colonoscope was slowly withdrawn in a retrograde panoramic fashion and the colon mucosa was carefully examined including a retroflexed view of the rectum. Findings and interventions are described below. Procedure Difficulty: without difficulty Findings: Terminal Ileum: Not evaluated Cecum: Normal Ascending Colon: Normal Transverse Colon: Normal Descending Colon: Normal Sigmoid Colon: Moderate diverticulosis Rectum: Normal Ano-rectum: Moderate internal hemorrhoids Colon preparation: Good after some irrigation. [place] Bowel Preparation Scale Right colon; 2 Transverse colon: 2 Left colon; 2 (0 = Unprepared colon segment with mucosa not seen due to solid stool that cannot be cleared. 1 = Portion of mucosa of the colon segment seen, but other areas of the colon segment not well seen due to staining, residual stool and/or opaque liquid. 2 = Minor amount of residual staining, small fragments of stool and/or opaque liquid, but mucosa of colon segment seen well. 3 = Entire mucosa of colon segment seen well with no residual staining, small fragments of stool or opaque liquid) Impression and Post Procedure Diagnosis: Colonoscopy Findings: No polyps were detected Moderate diverticulosis seen in the left colon Moderate hemorrhoids on retroflexed exam. Plan: Pt has a FU appointment on 02/15/24 with Kellen Gonzalez NP, Repeat Colonoscopy in 5 years due to a history of adenomatous colon polyps. Above findings were reviewed with the patient and relevant handouts were given and the discharge area. Patient placed on the colonoscopy recall list.
[2024-02-04 11:16] VITALS: BP 122/86; PULSE 75; RESP 18; TEMP 36.2; O2SAT 99
== END 2024-02-04 11:42 | disposition home or self-care (01) ==
PROVIDERS: PCP Family Medicine; Visit Provider Internal Medicine Gastroenterology
PROC: 0DJD8ZZ Inspection of Lower Intestinal Tract, Via Natural or Artificial Opening Endoscopic (ICD-10-PCS; CPT 45378; principal; 2024-02-04 10:20)
DX: Z12.11 Encounter for screening for malignant neoplasm of colon (principal); K57.30 Diverticulosis of large intestine without perforation or abscess without bleeding; K64.8 Other hemorrhoids; Z86.0101 Personal history of adenomatous and serrated colon polyps; Z83.719 Family history of colon polyps, unspecified; I10 Essential (primary) hypertension; G80.9 Cerebral palsy, unspecified; R47.01 Aphasia; Z79.899 Other long term (current) drug therapy
CPT/HCPCS: 45378; J2003; J2704

== ENCOUNTER → 2024-02-04 08:29 | Outpatient (BNV) | payer MEDICAID, SELFPAY | PROVIDERS: PCP Family Medicine; Visit Provider Internal Medicine Gastroenterology | DX: Z12.11 Encounter for screening for malignant neoplasm of colon (principal); Z86.0101 Personal history of adenomatous and serrated colon polyps; K57.30 Diverticulosis of large intestine without perforation or abscess without bleeding; K64.8 Other hemorrhoids | CPT/HCPCS: 45378 ==

== ENCOUNTER 2024-04-20 10:32 | Outpatient (REF) | payer MEDICAID, SELFPAY ==
[2024-04-20 11:12] LABS: MANUAL DIFF FLAG NO
[2024-04-20 11:19] LABS: Basophils Percent Auto 0.5 % (0-2); Eosinophils Absolute Auto 0.2 X10*3/uL (0.0-0.4); Eosinophils Percent Auto 2.7 % (0-4); Hematocrit 40.6 % (42.0-52.0); Hemoglobin 14.1 g/dl (14.0-18.0); Imm Gran Abs Auto 0.09 X10*3/uL (0.00-0.03); Imm Gran Pct Auto 1.1 % (0.0-0.4); Lymphocytes Absolute Auto 2.1 X10*3/uL (1.2-4.9); Lymphocytes Percent Auto 25.1 % (20-40); Mean Corpuscular HGB Conc 34.7 g/dl (31.0-36.0); Mean Corpuscular Hemoglobin 30.7 pg (27.0-33.0); Mean Corpuscular Volume 88.3 fL (80.0-98.0); Mean Platelet Volume 9.9 fL (9.4-12.4); Monocytes Absolute Auto 1.2 X10*3/uL (0.1-1.2); Monocytes Percent Auto 14.5 % (2-11); Neutrophils Absolute Auto 4.8 x10*3/uL (2.0-8.3); Neutrophils Percent Auto 56.1 % (45-73); Platelet Count 327 X10*3/uL (160-400); Red Cell Distribution Width 13.1 % (11.0-16.0); White Blood Count 8.5 X10*3/uL (4.8-10.8)
[2024-04-20 11:48] LABS: Alanine Aminotransferase 30 U/L (0-40); Albumin Level 3.9 g/dL (3.5-5.0); Alkaline Phosphatase 77 U/L (39-117); Anion Gap 10 (12-20); Aspartate Amino Transferase 34 U/L (5-37); Bilirubin Direct 0.1 mg/dL (0.0-0.5); Bilirubin Total 0.4 mg/dL (0.0-1.0); Blood Urea Nitrogen 11 mg/dL (9-16); Carbon Dioxide 26 mmol/L (22-29); Chloride 105 mmol/L (96-108); Cholesterol 173 mg/dL (<200); Estimated Glomerular Filt Rate > 60; Glucose Random 81 mg/dL (60-115); HDL Cholesterol 26 mg/dL (>40); LDL Cholesterol Calculated 102 mg/dL (<100); Potassium 4.3 mmol/L (3.3-5.1); Sodium 137 mmol/L (135-145); Total Protein 7.6 g/dL (6.5-8.0); Triglycerides 228 mg/dL (<150)
[2024-04-20 11:59] LABS: TSH reflex Free T4 1.02 uIU/mL (0.32-4.0); Vitamin D 25-OH Total 37.8 ng/mL (>30)
--- OUTSIDE RECORDS SUMMARY | 2024-04-20 14:08 | XMS_ITS | Clinical Summary ---
Author Organization [email or web address] Address [address] [place] [address] [address] [place] [address] Care Team Providers Care Outreach Worker Name Role Phone Patricia Rocha MD Primary Care Provider [phone] Deric Watts MD Unavailable [phone] Raul Alvarez Unavailable [phone] Allergies No known active allergies Medications D3-1000 25 MCG (1000 UT) capsuleIndicatio ns:Vitamin D deficiency TAKE 1 CAPSULE BY MOUTH DAILY 90 capsule 3 05/21/19 24 Active lisinopril 40 MG tabletIndication s:Primary hypertension TAKE 1 TABLET BY MOUTH EVERY MORNING 90 tablet 1 03/23/19 25 Active tamsulosin (Flomax) 0.4 MG 24 hr capsuleIndicatio ns:Urinary retention 04/05/19 25 Active baclofen (Lioresal) 20 MG tabletIndication s:CP (cerebral palsy), spastic (CMS/HCC) Take 20 mg by mouth. 07/15/19 24 Active tiZANidine (Zanaflex) 4 MG tabletIndication s:CP (cerebral palsy), spastic (CMS/HCC) Take 4 mg by mouth. 07/15/19 24 Active loperamide (Imodium A-D) 2 MG tabletIndication s:Diarrhea, unspecified type 4 mg. 08/10/19 24 Active PEG 8219-ZVr-UjOta-N aCl-NaSulf (PEG-3350/Electr olytes) 236 g reconstituted solutionIndicati ons:Constipation , unspecified constipation type 08/10/19 24 Active Bisacodyl EC 5 MG EC tabletIndication s:Constipation, unspecified constipation type 08/10/19 Active Methylcellulose, Laxative, 500 MG tabletIndication s:Constipation, unspecified constipation type 1,000 mg. 08/10/19 Active sucralfate (Carafate) 1 GM/10ML suspensionIndica tions:Gastroesop hageal reflux disease with esophagitis, unspecified whether hemorrhage 2 times a day 08/10/19 24 Active pantoprazole (ProtoNix) 40 MG EC tabletIndication s:Gastroesophage al reflux disease with esophagitis, unspecified whether hemorrhage 40 mg. 08/10/19 24 Active baclofen (Lioresal) 20 MG tablet 07/03/19 025 Discontinued(Me d list cleanup (will not trigger notification to Pharmacy)) chlorhexidine (Peridex) 0.12 % solution Place 15 mL into mouth between cheek and gum every 12 (twelve) hours. 07/12/19 025 Discontinued(Me d list cleanup (will not trigger notification to Pharmacy)) hydrophilic ointment apply once a day to the affected skin 03/24/19 025 Discontinued(Me d list cleanup (will not trigger notification to Pharmacy)) ibuprofen 600 MG tablet Take 1 tablet by mouth every 8 (eight) hours. 07/12/19 025 Discontinued(Me d list cleanup (will not trigger notification to Pharmacy)) loperamide (Imodium A-D) 2 MG tablet take 2 tablet (4MG) by oral route after 1st loose stool and 1 tablet (2 mg) after each next bowel movement; do not exceed 16 mg in 24hrs 07/23/19 025 Discontinued(Me d list cleanup (will not trigger notification to Pharmacy)) Anti-Diarrheal 2 MG tablet 07/03/19 025 Discontinued(Me d list cleanup (will not trigger notification to Pharmacy)) pantoprazole (ProtoNix) 40 MG EC tablet 07/03/19 025 Discontinued(Me d list cleanup (will not trigger notification to Pharmacy)) sucralfate (Carafate) 1 g tablet 07/03/19 025 Discontinued(Me d list cleanup (will not trigger notification to Pharmacy)) tiZANidine (Zanaflex) 4 MG tablet 12/26/19 025 Discontinued(Me d list cleanup (will not trigger notification to Pharmacy)) GNP Fiber Therapy 500 MG tablet 09/24/19 23 025 Discontinued(Me d list cleanup (will not trigger notification to Pharmacy)) lisinopril 40 MG tabletIndication s:Primary hypertension Take 1 tablet (40 mg) by mouth in the morning. 30 tablet 04/23/19 025 Discontinued(Re order (will not trigger notification to Pharmacy)) Baclofen 20 MG packIndications: CP (cerebral palsy), spastic (CMS/HCC) 20 mg. 05/21/19 21 025 Discontinued(Me d list cleanup (will not trigger notification to Pharmacy)) cholecalciferol (Vitamin D-3) 25 MCG (1000 UT) capsuleIndicatio ns:Wheelchair dependence 25 mcg. 08/05/19 025 Discontinued(Me d list cleanup (will not trigger notification to Pharmacy)) lisinopril 40 MG tabletIndication s:Primary hypertension 40 mg. 05/21/19 21 025 Discontinued(Me d list cleanup (will not trigger notification to Pharmacy)) tiZANidine (Zanaflex) 4 MG capsuleIndicatio ns:CP (cerebral palsy), spastic (CMS/HCC) 4 mg. 02/04/20 025 Discontinued(Me d list cleanup (will not trigger notification to Pharmacy)) Active Problems Problem Noted Date Diagnosed Date Chronic constipation 04/20/2024 Overview (04/20/2024): Well controlled on daily bowel regimen Assessment & Plan (04/20/2024 11:54 AM EST): Well controlled on daily bowel regimen Intellectual disability 04/20/2024 Pressure injury of left ankle, stage 1 Overview (04/20/2024): -noted on physical 04/20/24. Caregiver to monitor. Keep area padded. Assessment & Plan (04/20/2024 11:57 AM EST): -noted on physical 04/20/24. Caregiver to monitor. Keep area padded. Tubular adenoma of colon 04/13/2024 Overview (04/13/2024): 11/2020 scope greater than 1 cm sessile lesion repeat in 3 years Urinary retention 12/09/2023 Overview (04/13/2024): Seen in ER 12/09/23 for urinary retention, cather placed, will call to see if urology referral done. -seen by Dr. Jacob Alvarez 01/04/24 of [facility]. Flomax started PSA ordered, follow up 6 months. Assessment & Plan (04/20/2024 11:52 AM EST): Seen in ER 12/09/23 for urinary retention, cather placed, will call to see if urology referral done. -seen by Dr. Jacob Alvarez 01/04/24 of [facility]. Flomax started PSA ordered, follow up 6 months. Physical exam 04/07/2023 Overview (04/07/2023): -Normal growth and development. -Anticipatory guidance discussed. -Preventative care / harm reduction discussed. Assessment & Plan (07/01/2023 10:00 AM EDT): -Normal growth and development. -Anticipatory guidance discussed. -Preventative care / harm reduction discussed. Assessment & Plan (04/07/2023 9:55 AM EST): -Normal growth and development. -Anticipatory guidance discussed. -Preventative care / harm reduction discussed. Tremor 04/07/2023 Overview (04/07/2023): -new tremorbayleether concerned nuerological disease . Not noted on exam, possible due to underlying CP, referral request to pts Physical Rehab Assessment & Plan (07/01/2023 10:01 AM EDT): -new tremor, borther concerned nuerological disease . Not noted on exam, possible due to underlying CP, referral request to pts Physical Rehab Assessment & Plan (04/07/2023 11:42 AM EST): -new tremorariel concerned nuerological disease . Not noted on exam, possible due to underlying CP, referral request to pts Physical Rehab Preventative health care 10/05/2022 Overview (04/20/2024): -next physical exam due after 04/20/25 -eye care referral placed to [facility] 04/20/24 -dental home is [facility] -healthcare proxy guardian paperwork in process 04/07/23 Assessment & Plan (04/20/2024 11:52 AM EST): -next physical exam due after 04/20/25 -eye care referral placed to [facility] 04/20/24 -dental home is [facility] -healthcare proxy guardian paperwork in process 04/07/23 Assessment & Plan (07/01/2023 9:59 AM EDT): -next physical exam due after 04/07/2024 -eye care facilitated by none -dental home is [facility] -healthcare proxy guardian paperwork in process 04/07/23 Assessment & Plan (04/07/2023 11:16 AM EST): -next physical exam due after 04/07/2024 [facility]healthcare proxy guardian paperwork in process 04/07/23 Assessment & Plan (10/15/2022 8:56 AM EDT): -next physical exam due after 02/16/2023. -eye care facilitated by -dental home is Class 1 obesity 08/04/2022 Wheelchair dependence 07/16/2022 Overview (08/20/2022): Wheelchair Clnic. Clinical information/comments: -[phone]. Fax [phone]. For wheelchiar evaluation. Assessment & Plan (07/01/2023 9:58 AM EDT): Wheelchair Clnic. [facility] information/comments[phone] Fax [phone]. For wheelchiar evaluation. Assessment & Plan (04/07/2023 9:14 AM EST): Wheelchair Clnic. [facility] [place] [phone]. Fax [phone]. For wheelchiar evaluation. Assessment & Plan (10/15/2022 8:57 AM EDT): Wheelchair Clnic. Clinical information/comments: -[phone]. Fax [phone]. For wheelchiar evaluation. Assessment & Plan (08/20/2022 3:41 PM EDT): Wheelchair Clnic. Clinical information/comments: -[phone]. Fax [phone]. For wheelchiar evaluation. Tubular adenoma 07/16/2022 Overview (04/20/2024): Tubular adenoma with Dr. Watts on colonoscopy 11/15/2020. Repeat Feb 04, 2024 no polyp repeat 5 years due to hx adenomatous polyp Assessment & Plan (04/20/2024 11:51 AM EST): Tubular adenoma with Dr. Watts on colonoscopy 11/15/2020. Repeat Feb 04, 2024 no polyp repeat 5 years due to hx adenomatous polyp Assessment & Plan (07/01/2023 9:59 AM EDT): Tubular adenoma with Dr. Watts on colonoscopy 11/15/2020. Repeat due 3-5 years Assessment & Plan (04/07/2023 9:18 AM EST): Tubular adenoma with Dr. Watts on colonoscopy 11/15/2020. Repeat due 3-5 years Assessment & Plan (08/20/2022 3:39 PM EDT): Tubular adenoma with Dr. Watts on colonoscopy 11/15/2020. Repeat due 3-5 years. Vitamin D deficiency 05/24/2018 Chronic low back pain 10/19/2016 Asthenia 01/08/2012 Diarrhea 10/27/2011 Overview (04/07/2023): Followed by [facility], last visit 01/2023 Continue: - Carafate 2 pills twice a day - Imodium and fiber for diarrhea Assessment & Plan (07/01/2023 9:57 AM EDT): Followed by Kellen [facility], last visit 01/2023 Continue: - Carafate 2 pills twice a day - Imodium and fiber for diarrhea Assessment & Plan (04/07/2023 11:40 AM EST): Followed by Kellen H[facility], last visit 01/2023 Continue: - Carafate 2 pills twice a day - Imodium and fiber for diarrhea Insomnia 10/27/2011 Overview (08/21/2022): High risk for aspiration. Good sleep hygiene Family is going to look into THC gummies with melatonin. I discussed safest options with him. Assessment & Plan (07/01/2023 9:56 AM EDT): High risk for aspiration. Good sleep hygiene Family is going to look into THC gummies with melatonin. I discussed safest options with him. Assessment & Plan (04/07/2023 9:15 AM EST): High risk for aspiration. Good sleep hygiene Family is going to look into THC gummies with melatonin. I discussed safest options with him. Assessment & Plan (10/15/2022 8:56 AM EDT): High risk for aspiration. Good sleep hygiene Family is going to look into THC gummies with melatonin. I discussed safest options with him. Assessment & Plan (08/21/2022 11:49 AM EDT): High risk for aspiration. Good sleep hygiene Family is going to look into THC gummies with melatonin. I discussed safest options with him. CP (cerebral palsy), spastic 09/03/2011 Overview (04/20/2024): Pt needs assistance with all ADLs and IADLs. Wheelchair bound. He needs a lift van as his brother is no longer able to safely lift him into the regular van. Followed by physical medicine and rn document improvement specialist, Dr. Jorge Velazquez Apt 04/20/24 Aspiration risk: no coughing or choking with regular diet Risk Bowel Obstruction: moving bowels well with daily bowel regimen History of seizures: no Risk of dehydration: relies on others for PO intake, no evidence of dehydration Sign of GERD symptoms: he denies abdominal pain on PPI and can let his caregiver know when he is in pain Risk of sepsis: no current increased risk Assessment & Plan (04/20/2024 11:48 AM EST): Pt needs assistance with all ADLs and IADLs. Wheelchair bound. He needs a lift van as his brother is no longer able to safely lift him into the regular van. Followed by physical medicine and rn document improvement specialist, Dr. Jorge Velazquez Apt 04/20/24 Aspiration risk: no coughing or choking with regular diet Risk Bowel Obstruction: moving bowels well with daily bowel regimen History of seizures: no Risk of dehydration: relies on others for PO intake, no evidence of dehydration Sign of GERD symptoms: he denies abdominal pain on PPI and can let his caregiver know when he is in pain Risk of sepsis: no current increased risk Assessment & Plan (07/01/2023 9:56 AM EDT): Pt needs assistance with all ADLs and IADLs. Wheelchair bound. He needs a lift van as his brother is no longer able to safely lift him into the regular van. Assessment & Plan (04/07/2023 9:13 AM EST): Pt needs assistance with all ADLs and IADLs. Wheelchair bound. He needs a lift van as his brother is no longer able to safely lift him into the regular van. Assessment & Plan (10/15/2022 8:57 AM EDT): Pt needs assistance with all ADLs and IADLs. Wheelchair bound. He needs a lift van as his brother is no longer able to safely lift him into the regular van. Assessment & Plan (08/20/2022 3:40 PM EDT): Pt needs assistance with all ADLs and IADLs. Wheelchair bound. He needs a lift van as his brother is no longer able to safely lift him into the regular van. Gastroesophageal reflux disease 09/03/2011 Overview (04/07/2023): Followed by Kellen HESS -conitnue pantoprazole 40 mg twice a day -Note from 01/2024 reviewed Assessment & Plan (04/20/2024 11:48 AM EST): Followed by Kellen HESS -conitnue pantoprazole 40 mg twice a day -Note from 01/2024 reviewed Assessment & Plan (07/01/2023 9:57 AM EDT): Followed by Kellen HESS Gonzalez -conitnue pantoprazole 40 mg twice a day -Note from 01/2024 reviewed Assessment & Plan (04/07/2023 11:40 AM EST): Followed by Kellen HESSers -conitnue pantoprazole 40 mg twice a day -Note from 01/2024 reviewed Assessment & Plan (08/20/2022 3:40 PM EDT): Continue PPI per GI Hypertension 09/03/2011 Overview (04/07/2023): -Blood pressure is at goal -Continue lifestyle modifications -Continue current medications Assessment & Plan (04/20/2024 11:48 AM EST): -Blood pressure is at goal -Continue lifestyle modifications -Continue current medications Assessment & Plan (07/01/2023 9:57 AM EDT): -Blood pressure is at goal -Continue lifestyle modifications -Continue current medications Assessment & Plan (04/07/2023 11:41 AM EST): -Blood pressure is at goal -Continue lifestyle modifications -Continue current medications Resolved Problems Problem Noted Date Diagnosed Date Resolved Date Hyponatremia 08/04/2022 04/07/2023 Lymphedema 08/04/2022 04/07/2023 Overview (08/20/2022): Assessment & Plan (08/20/2022 3:42 PM EDT): Pain in lower limb 07/26/2012 Encounters Date Type Department Care Team Description 04/20/2024 9:30 AM EST Office Visit [address] [address] Patricia Rocha MD Encounter for immunization (Primary Dx); CP (cerebral palsy), spastic (CMS/HCC); Vitamin D deficiency; Elevated LFTs; Dyslipidemia; Tubular adenoma; Preventative health care; Gastroesophageal reflux disease with esophagitis, unspecified whether hemorrhage; Hypertension, unspecified type; Urinary retention; Chronic constipation; Intellectual disability; Pressure injury of left ankle, stage 1 04/20/2024 Travel 04/13/2024 Orders Only [address] [address] Patricia Rocha MD CP (cerebral palsy), spastic (CMS/HCC) (Primary Dx); Primary hypertension; Wheelchair dependence; Urinary retention; Diarrhea, unspecified type; Constipation, unspecified constipation type; Gastroesophageal reflux disease with esophagitis, unspecified whether hemorrhage 04/07/2024 Patient Outreach [address] [address] Patricia Rocha MD Pre-visit Planning (SDOH Screening negative and Tobacco screening negative) 04/07/[address] [address] Patricia Rocha MD Chart Prep 03/23/2024 Refill [facility] [address] [place] [address] Patricia Rocha MD Primary hypertension 03/07/2024 Telephone [facility] [address] [place] [id number] Patricia Rocha MD FYI 02/07/2024 Orders Only [facility] [address] [place] [id number] Patricia Rocha MD 01/28/2024 8:15 AM EST Office Visit [facility] [address] [place] [address] [employer] gaspar 01/21/2024 Telephone [facility] [address] [place] [phone] Patricia Rocha MD from Last 3 Months Immunizations Name Administration Dates Next Due Hep A, Adult 11/13/2011,10/27/2011,03/31/2011 Hep B, adult 10/27/2011,05/05/2011,03/31/2011 Influenza injectable quadriv alent IIV4 with preservative 01/09/2019,12/16/2017,02/09/2017,2015 Influenza injectable quadriv alent preservative free 04/07/2023,12/25/2021,01/15/2021,2019 Influenza, IIV3, injectable 03/02/2014 Influenza, Split (incl. lupe fied surface antigen) 12/28/2012,03/07/2012 Influenza, seasonal, injecta ble, preservative free 04/20/2024 Moderna Covid-19 Vaccine 12+ 03/08/2021,06/20/19 21,05/22/2020 Pfizer Covid-19 Vaccine 12+ 04/20/2024, Pneumococcal Conjugate PCV 20 04/20/2024 Td (adult), 5 Lf tetanus tox oid, preservative free, adsorbed 11/20/2016,10/14/2012 Tdap 01/15/2021 Zoster, Recombinant 04/07/2023,10/15/2022 Family History Medical History Relation Name Comments Deafness Brother 1 Cerebral palsy Brother 2 Relation Name Status Comments Brother 1 Brother 2 Alive Social History Tobacco Use Types Packs/Day Years Used Date Smoking Tobacco: Never Passive Smoke Exposure: Never Smokeless Tobacco: Never Tobacco Cessation:Counseling Given: Not Answered Alcohol Use Standard Drinks/Week Comments Never 0 (1 standard drink = 0.6 oz pur e alcohol) Depression Answer Date Recorded Patient Health Questionnaire-9 Score 0 04/20/2024 Patient Health Questionnaire-9 Score 0 04/20/2024 Last PHQ-9: Questionnaire Data Not on file 0 04/20/2024 Housing Stability Answer Date Recorded What is your housing situation today? I have [place]in [place] 01/20/[address] you li ve. Do you have problems with any of the following? None of the above 01/20/2023 Food Insecurity Answer Date Recorded Within the past 12 months, y ou worried that your food would run out before you got money to buy more: Never True 01/20/2023 Within the past 12 months,th e food you bought just didn't last and you didn't have enough money to get more: Never True 03/2022 Transportation Answer Date Recorded In the past 12 months, has l ack of transportation kept you from medical appts, meetings, work or from getting things needed for daily living? No 06/21/2023 Utilities Answer Date Recorded In the past 12 months, has t he electric, gas, oil or water company threatened to shut off services in your home? No 01/20/2023 Depression Answer Date Recorded Patient Health Questionnaire-2 Score 0 04/20/2024 Internet Access Answer Date Recorded Internet Access Q1 Yes 04/07/2024 Internet Access Q2 Not on file 04/07/2024 Sex and Gender Information Value Date Recorded Sex Assigned at Male 01/19/2022 10:22 AM EDT Legal Sex Male 10:22 AM EDT Gender Identity Male 01/19/2022 10:22 AM EDT Sexual Orientation Straight 01/19/2022 10 :22 AM EDT Last Filed Vital Signs Vital Sign Reading Time Taken Comments Blood Pressure 101/62 04/20/2024 9:50 AM EST Pulse 78 04/20/2024 9:50 AM EST Temperature 36.7 ??C (98 ??F) 04/20/2024 9:50 AM EST Respiratory Rate 20 04/20/2024 9:50 AM EST Oxygen Saturation 98% 04/20/2024 9:50 AM EST Inhaled Oxygen Concentration - - Weight 54.4 kg (120 lb) 04/20/2024 9:37 AM EST Height 157.5 cm (5' 2 ) 04/20/2024 9:37 AM EST Body Mass Index 21.95 04/20/2024 9:37 AM EST Plan of Treatment Upcoming Encounters Date Type Department Care Team (Late st Contact Info) Description 04/27/2024 8:15 AM EST Office Visit [facility] [address] [place] [address] N[facility] Health Maintenance Due Date Last Done Comments CT Colonography 1972 Dental X-Ray: Full Mouth 1972 FIT DNA/Cologuard 1972 FIT 1972 FOBT 1972 Sigmoidoscopy 1972 Dental X-Ray: Bitewings 07/26/2024 07/26/19 24, 08/09/2020, 01/19/2014, Additional history exists Dental Oral Exam 07/28/2024 01/28/2024, 08/2023, 12/17/2021, Additional history exists Dental Prophylaxis 07/28/2024 01/28/2024, 0 07/26/2023, 12/17/2021, Additional history exists SDOH Screening 04/07/2025 04/07/2024 Alcohol/Substance Use Screening 04/20/2025 04/20/2024 Depression Screening 04/20/2025 04/20/2024, 04/20/19 25 Family Planning (PISQ) 04/20/2025 04/20/2024 Tobacco Screening 04/20/2025 04/20/2024 Colonoscopy 02/03/2029 02/04/2024, 11/15/2020 Colorectal Cancer Screening 02/03/2029 Lipid Panel 04/20/2029 04/20/2024, 03/22, 02/16/2022, Additional history exists DTaP/Tdap/Td Vaccines (2 - Td or Tdap) 01/15/2031 01/15/2021, 11/20/2016, 10/14/2012 RSV Patients and Patients Aged 60 years or older (1 - 1-dose 75+ series) 2047 Hepatitis B Vaccines Completed 10/27/2011, 05/05/2011, 03/31/2011 Hepatitis A Vaccines Aged Out 11/13/2011, 10/27/2011, 03/31/2011 No longer eligible based on patient's age to complete this topic Hepatitis C Screening Completed 02/16/2022, 022 Zoster Vaccines Completed 04/07/2023, 10/15/2022 COVID-19 Vaccine Completed 04/20/2024, , 03/08/2021, Additional history exists Influenza Vaccine Completed 04/20/2024, , 12/25/2021, Additional history exists Pneumococcal Vaccine: 50+ Years Completed 04/20/2024 HIB Vaccines Aged Out No longer eligi ble based on patient's age to complete this topic HIV Screening Discontinued HPV Vaccines Aged Out No longer eligi ble based on patient's age to complete this topic IPV Vaccines Aged Out No longer eligi ble based on patient's age to complete this topic Meningococcal Vaccine Aged Out No joel milagros eligible based on patient's age to complete this topic RSV under 20 months Aged Out No longe r eligible based on patient's age to complete this topic Rotavirus Vaccines Aged Out No longer eligible based on patient's age to complete this topic Procedures Procedure Name Priority Date/Time Associated Diagnosis Comments VITAMIN D,25-OH,TOTAL,IA Routine 04/20/2024 10:34 AM EST Vitamin D deficiency CBC WITH AUTO DIFFERENTIAL Routine 04/20/2024 10:34 AM EST CP (cerebral palsy), spastic (CMS/HCC) TSH W/REFLEX TO FT4 Routine 04/20/2024 1 0:34 AM EST CP (cerebral palsy), spastic (CMS/HCC) BASIC METABOLIC PANEL Routine 04/20/2024 10:34 AM EST CP (cerebral palsy), spastic (CMS/HCC) LIPID PANEL, STANDARD Routine 04/20/2024 10:34 AM EST Dyslipidemia HEPATIC FUNCTION PANEL Routine 04/20/2024 10:34 AM EST Elevated LFTs HM COLONOSCOPY Routine 02/04/2024 NUTRITIONAL COUNSELING FOR CONTROL OF DENTAL DISEASE Routine 01/28/2024 8:15 AM EST DIAGNOSTIC - TESTS AND EXAMINATIONS - CARIES RISK ASSESSMENT AND DOCUMENTATION, WITH A FINDING OF HIGH RISK Routine 01/28/2024 8:15 AM EST PERIODIC ORAL EVALUATION - ESTABLISHED PATIENT Routine 01/28/2024 8:15 AM EST ADJUNCTIVE GENERAL SERVICES - PROFESSIONAL VISITS - CASE PRESENTATION, SUBSEQUENT TO DETAILED AND EXTENSIVE TREATMENT PLANNING Routine 01/28/2024 8:15 AM EST ORAL HYGIENE INSTRUCTIONS Routine 01/28/2024 8:15 AM EST Full PROPHYLAXIS - ADULT Routine 01/28/2024 8:15 AM EST TOPICAL APPLICATION OF FLUORIDE VARNISH Routine 01/28/2024 8:15 AM EST BITEWINGS - 4 RADIOGRAPHIC IMAGES Routine 07/26/2023 8:00 AM EDT ZZZ HISTORICAL HEPATITIS C AB W/REFL TO HCV RNA, QN, PCR Routine 02/16/2022 11:54 AM EST from Last 3 Months or Most Recently Relevant to Health Maintenance Results * Vitamin D, 25-Hydroxy, Total, Immunoassay (04/20/2024 10:34 AM EST) Pathologist [facility] Vitamin D 25-OH Total 37.8 >30 ng/mL [facility] Comment:Health Based Referen ce Values*< 20 ng/mL [id number] ng/mL Insufficient> 30 ng/mL Sufficient*Mary Lou ROCHA. N Engl J Med. 2007;[id number]:266-280Care must be taken in interpreting Vitamin D results fromdifferent laboratories and methodologies. Published datademonstrated that results from patients undergoinghemodialysis may show a negative bias when tested withvarious automated 25-OH vitamin D assays when compared toLC-MS/MS.When testing samples from patients whose predominant form ofVitamin D is Vitamin D2, such as patients receiving VitaminD2 supplementation, results that are subtherapeutic shouldbe confirmed with another method such as LC-MS/MS. Blood Venous blood specimen / Unknown 04/20/2024 10:34 AM EST 04/20/2024 11:04 AM EST Patricia Rocha MD LAB BLOOD ORDERABLES Final Result Performing Organization Address City/[facility]/ZIP Co de Phone Number [facility] [address] [place] [phone] * TSH with Reflex to Free T4 (04/20/2024 10:34 AM EST) TSH reflex Free T4 1.02 0.32 - 4.0 uIU/mL [facility] Blood 04/20/2024 10:3 4 AM EST 04/20/2024 11:04 AM EST Patricia Rocha MD LAB BLOOD ORDERABLES Final Result Performing Organization Address [facility] Co de Phone Number [facility] [address] [place] [phone] * (ABNORMAL) CBC auto differential (04/20/2024 10:34 AM EST) Pathologist [facility] White Blood Count 8.5 4.8 - 10.8 X10*3/uL [facility] Red Blood Count 4.60 4.60 - 5.80 X10*6/uL [facility] Hemoglobin 14.1 14.0 - 18.0 g/dl [facility] Hematocrit 40.6(L) 42.0 - 52.0 % [facility] Mean Corpuscular Volume 88.3 80.0 - 98.[address] [facility] Mean Corpuscular Hemoglobin 30.7 27.0 - 33.[address] [facility] Mean Corpuscular HGB Conc 34.7 31.0 - 36.0 g/dl [facility] Red Cell Distribution Width 13.1 11.0 - 16.0 % [facility] Platelet Count 327 160 - 400 X10*3/uL [facility] Mean Platelet Volume 9.9 9.4 - 12.[address] [facility] Neutrophils Percent Auto 56.1 45 - 73 % [facility] Imm Gran Pct Auto 1.1(H) 0.0 - 0.4 % [facility] Lymphocytes Percent Auto 25.1 20 - 40 % [facility] Monocytes Percent Auto 14.5(H) 2 - 11 % [facility] Eosinophils Percent Auto 2.7 0 - 4 % [facility] Basophils Percent Auto 0.5 0 - 2 % [facility] NRBC Pct Auto 0.0 0.0 - 0.2 /100WBC [facility] Neutrophils Absolute Auto 4.8 2.0 - 8.3 x10*3/uL [facility] Imm Gran Abs Auto 0.09(H) 0.00 - 0.03 X10*3/uL [facility] Lymphocytes Absolute Auto 2.1 1.2 - 4.9 X10*3/uL [facility] Monocytes Absolute Auto 1.2 0.1 - 1.2 X10*3/uL [facility] Eosinophils Absolute Auto 0.2 0.0 - 0.4 X10*3/uL [facility] Basophils Absolute Auto 0.0 0.0 - 0.2 X10*3/uL [facility] NRBC Abs Auto 0.000 0.0 - 0.012 X10*3/uL [facility] Blood Venous blood specimen / Unknown 04/20/2024 10:34 AM EST 04/20/2024 11:04 AM EST Patricia Rocha MD LAB BLOOD ORDERABLES Final Result [facility] [address] [place] [address] [phone] * Hepatic Function Panel (04/20/2024 10:34 AM EST) Bilirubin, Total 0.4 0.0 - 1.0 mg/dL [facility] Bilirubin, Direct 0.1 0.0 - 0.5 mg/dL [facility] Aspartate Amino Transferase 34 5 - 37 U/L [facility] Alanine Aminotransferase 30 0 - 40 U/L [facility] Total Protein 7.6 6.5 - 8.0 g/dL [facility] Albumin Level 3.9 3.5 - 5.0 g/dL [facility] Alkaline Phosphatase 77 39 - 117 U/L [facility] Blood Venous blood specimen / Unknown 04/20/2024 10:34 AM EST 04/20/2024 11:04 AM EST Patricia Rocha MD LAB BLOOD ORDERABLES Final Result Performing Organization Address City/[facility] Co de Phone Number [facility] [address] [place] [address] [phone] * (ABNORMAL) Lipid Panel, Standard (04/20/2024 10:34 AM EST) Triglycerides 228(H) <150 mg/dL [facility] Comment:Desirable Triglyceri de: less than 150 mg/dLBorderline High Triglyceride 150-199 mg/dLHigh Triglyceride: 200-499 mg/dLVery High Triglyceride: greater than or equal to 5OO mg/dL Cholesterol 173 <200 mg/dL [facility] Comment:Desirable Cholestero l: less than 200 mg/dLBorderline High Cholesterol: 200-239 mg/dLHigh Cholesterol: greater than 239 mg/dL LDL Cholesterol Calculated 102(H) <100 mg/dL [facility] Comment:Desirable LDL: less than 100 mg/dLNear Optimal/Above Optimal LDL: 110- 129 mg/dLBorderline High LDL: 130-159 mg/dLHigh LDL: 160-189 mg/dLVery High LDL: greater than or equal to 190 mg/dL HDL Cholesterol 26(L) >40 mg/dL [facility] Comment:Desirable HDL: great er than 40 mg/dL Note: This HDL assay may give artificially low results in patients with liver disease. Blood Venous blood specimen / Unknown 04/20/2024 10:34 AM EST 04/20/2024 11:04 AM EST Patricia Rocha MD LAB BLOOD ORDERABLES Final Result [facility] [address] [place] [address] [phone] * (ABNORMAL) Basic Metabolic Panel (04/20/2024 10:34 AM EST) Pathologist [facility] Sodium 137 135 - 145 mmol/L [facility] Potassium 4.3 3.3 - 5.1 mmol/L [facility] Chloride 105 96 - 108 mmol/L [facility] Carbon Dioxide 26 22 - 29 mmol/L [facility] Anion Gap 10(L) 12 - [address] [facility] Urea Nitrogen (BUN) 11 9 - 16 mg/dL [facility] Creatinine, Serum 0.62 0.5 - 1.4 mg/dL [facility] Estimated Glomerular Filt Rate >[address] [facility] Comment:Chronic Kidney Disea se: Estimated GFR < 60 mL/min/1.95t5Qmgfpb Kidney Disease: Estimated GFR < 15 mL/min/1.73m2 Glucose 81 60 - 115 mg/dL [facility] Calcium 9.0 8.4 - 10.2 mg/dL [facility] Blood Venous blood specimen / Unknown 04/20/2024 10:34 AM EST 04/20/2024 11:04 AM EST Patricia Rocha MD LAB BLOOD ORDERABLES Final Result Performing Organization Address [facility] Co de Phone Number [facility] [address] [place] [phone] * Hm Colonoscopy (02/04/2024) [facility] Colonoscopy Normal Normal Historical Provider HEALTH MAINTENANCE Final Result * HEPATITIS C AB W/REFL TO HCV RNA, QN, PCR (02/16/2022 11:54 AM EST) Pathologist [facility] HEPATITIS C ANTIBODY NON-REACTI VE NON-REACT RORY [facility] INDEX 0.07 <1.00 [facility] Comment: ?? HCV antibody was non-reactive. There is no laboratory ?? evidence of HCV infection. ?? In most cases, no further action is required. However, if recent HCV exposure is suspected, a test for HCV RNA (test code 89538) is suggested. ?? For additional information please refer to [email or web address]/faq/[email or web address] (This link is being provided for informational/ educational purposes only.) ?? 02/16/2022 11:5 4 AM EST Patricia Rocha MD HISTORICAL/NON ORDERABLE L ABS Final Result [facility] from Last 3 Months or Most Recently Relevant to Health Maintenance Insurance [facility]AL[facility] MEDICAID STAND ADULT DENTAL-[facility] MEDICAID STAND ADULT Advance Directives Documents on File Type Date Recorded Patient Director Of Surgery Expl anation Power of Composite Technician 05/31/2023 11:15 AM Decr ee of Guardianship Care Teams Outreach Worker Relationship Specialty Start Date End Date [place], MD Patricia [address] [place] [phone] PCP - General Family Medicine 06/01/19 Deric Watts MD [address] [place] [address] [address] [place] [address] Gastroenterology 02/09/24 Raul Alvarez [address] [address] Urology 04/13/24 Dr. Jorge Velazquez MD [facility] 04/20/24
--- OUTSIDE RECORDS SUMMARY | 2024-04-20 14:08 | XMS_ITS | Encounter Summary ---
Author Organization [facility] Address [address] [place] [address] 7 [place] [address] Care Team Providers Care Historical Archeologist Name Role Phone Patricia Rocha MD Primary Care Provider Deric Watts MD Unavailable [phone] Raul Alvarez Unavailable [phone] Encounter Details Date Type Department Care Team (Late st Contact Info) Description 07/03/2022 [facility] Information Management [address] [place], [place] [phone] Patricia Rocha MD [address] [place] [address] [phone] Social History Tobacco Use Types Packs/Day Years Used Date Smoking Tobacco: Never Assessed Sex and Gender Information Value Date Recorded Sex Assigned at Male 01/19/2022 10:22 AM EDT Legal Sex Male 10:22 AM EDT Gender Identity Male 01/19/2022 10:22 AM EDT Sexual Orientation Straight 01/19/2022 10 :22 AM EDT documented as of this encounter Plan of Treatment Upcoming Encounters Date Type Department Care Team (Late st Contact Info) Description 04/27/2024 8:15 AM EST Office Visit [facility] [address] [place] [address] Nahum Solano documented as of this encounter Visit Diagnoses Not on filedocumented in this encounter Care Teams Historical Archeologist Relationship Specialty Start Date End Date Patricia Rocha MD [address] [place] [address] PCP - General Family Medicine 06/01/19 Deric Watts MD [address] [place] [address] Drive 3rd [place] [address] Gastroenterology 02/09/24 Raul Alvarez [address] [phone] Urology 04/13/24 Dr. Jorge Velazquez MD [facility] Physical Medicine and Rehabilitation 04/20/24 documented as of this encounter
--- OUTSIDE RECORDS SUMMARY | 2024-04-20 14:08 | XMS_ITS | Encounter Summary ---
Author Organization [employer] Address [address] [facility] 7t [place] [address] Care Team Providers Care Sliver Lapper Name Role Phone Patricia Rocha MD Primary Care Provider [phone] Deric Watts MD Unavailable [phone] Raul Alvarez Unavailable [phone] Reason for Visit * Reason Onset Date Comments FYI 03/07/2024 Encounter Details Date Type Department Care Team (Late st Contact Info) Description 03/07/2024 Telephone [facility] [address] [place] [address] Patricia Rocha MD [address] [place], [place] [phone] Social History Tobacco Use Types Packs/Day Years Used Date Smoking Tobacco: Never Smokeless Tobacco: Never Alcohol Use Standard Drinks/Week Comments Never 0 (1 standard drink = 0.6 oz pur e alcohol) Depression Answer Date Recorded Patient Health Questionnaire-9 Score 0 04/07/2023 Patient Health Questionnaire-9 Score 0 04/07/2023 Last PHQ-9: Questionnaire Data Not on file 0 04/07/2023 Housing Stability Answer Date Recorded What is [...] Date Recorded Patient Health Questionnaire-2 Score 0 04/07/2023 Sex and Gender Information Value Date Recorded Sex Assigned at Male 01/19/2022 10:22 AM EDT Legal Sex Male 10:22 AM EDT Gender Identity Male 01/19/2022 10:22 AM EDT Sexual Orientation Straight 01/19/2022 10 :22 AM EDT documented as of this encounter Miscellaneous Notes * Telephone Encounter - Grace Downing RN - 03/07/2024 11:31 AM EST Sanjay Chua is brother. Requested Legal Guardianship of patient, documents on file. Only have HIPAA on file for sister in law. Contact to brother via vp genetic. Per brother pt has an area of bruising that is tender to touch on left leg x 2 months ago. Per brother pt has bilateral leg swelling at baseline. No uneven swelling. No CP or SOB per brother. No injury. Per brother is planning to come into [facility] tomorrow. Reviewed [facility] operating hours and that wait times vary. Reviewed home care advise, ER precautions and reasons to call back. Will send to PCP as FYI. To advise Green Team primary care nurses if any other advise or recommendations to above plan of care. Protocol Used: Leg Pain (Adult) Protocol-Based Disposition: See in Office or Video Visit Today or Tomorrow Video visit offer not recorded Positive Triage Question: * Localized pain, redness or hard lump along vein * All higher-acuity triage questions were negative Care Advice Discussed: * Reasons To Call Back - Signs of infection occur (such as spreading redness, warmth, fever) - You become worse * Telephone Encounter - Quique Carter - 03/07/2024 11:23 AM EST Tc from pt brother stating that pt has on his left leg has swelling and brother asked if he was in pain and pt stated it was moderate pain. PT does have CP. Walk in clinic visit at 5pm. documented in this encounter Plan of Treatment Upcoming Encounters Date Type Department Care Team (Late st Contact Info) Description 04/27/2024 8:15 AM EST Office Visit [facility] [address] [place] [address] Nahum Solano documented as of this encounter Visit Diagnoses Not on filedocumented in this encounter Additional Health Concerns Assessment Noted Time PHQ-9 Depression Total Score: 0 04/07/19 10:40 AM EST documented as of this encounter Care Teams Sliver Lapper Relationship Specialty Start Date End Date Patricia Rocha MD [address] [place] [address] PCP - General Family Medicine 06/01/19 Deric Watts MD [address] [place] [address] 3rd [place] [address] Gastroenterology 02/09/24 Raul Alvarez [address] [address] Urology 04/13/24 Dr. Jorge Velazquez MD [facility] Physical Medicine and Rehabilitation 04/20/24 documented as of this encounter
--- OUTSIDE RECORDS SUMMARY | 2024-04-20 14:08 | XMS_ITS | Encounter Summary ---
Author Organization [email or web address] Address [address] [facility] 7t [place] [address] Care Team Providers Care Manager Gift Name Role Phone Patricia Rocha MD Primary Care Provider [phone] Deric Watts MD Unavailable [phone] Raul Alvarez Unavailable [phone] Encounter Details Date Type Department Care Team (Late st Contact Info) Description 04/13/[address] [facility] [address] [place], [place] [phone] Patricia Rocha MD [address] [place], [place] [phone] CP (cerebral palsy), spastic (CMS/HCC) (Primary Dx); Primary hypertension; Wheelchair dependence; Urinary retention; Diarrhea, unspecified type; Constipation, unspecified constipation type; Gastroesophageal reflux disease with esophagitis, unspecified whether hemorrhage Social History Tobacco Use Types Packs/Day Years [...] Recorded Patient Health Questionnaire-2 Score 0 04/07/2023 Internet Access Answer Date Recorded Internet Access [...] Description 04/27/2024 8:15 AM EST Office Visit [facility] [address] [place] [address] Nahum Solano documented as of this encounter Visit Diagnoses Diagnosis CP (cerebral palsy), spastic (CMS/HCC)- Primary Unspecified infantile cerebral palsy Primary hypertension Unspecified essential hypertension Wheelchair dependence Urinary retention Unspecified retention of urine Diarrhea, unspecified type Constipation, unspecified constipation type Gastroesophageal reflux disease with esophagitis, unspecified whether hemorrhage documented in this encounter Additional Health Concerns Assessment Noted Time PHQ-9 Depression Total Score: 0 04/07/19 24 10:40 AM EST documented as of this encounter Care Teams Manager Gift Relationship Specialty Start Date End Date Patricia Rocha MD [address] [place] [address] PCP - General Family Medicine 06/01/19 Deric Watts MD [address]rd [place] [address] Gastroenterology 02/09/24 Raul Alvarez [address] [place] [address] Urology 04/13/24 documented as of this encounter
--- OUTSIDE RECORDS SUMMARY | 2024-04-20 14:08 | XMS_ITS | Encounter Summary ---
Author Organization [employer] Address [address] [facility] 7t [place] [address] Care Team Providers Care Public Information Coordinator Name Role Phone Patricia Rocha MD Primary Care Provider [phone] Deric Watts MD Unavailable [phone] Reason for Visit * Reason Onset Date Comments Chart Prep 04/07/2024 Encounter Details Date Type Department Care Team (Late st Contact Info) Description 04/07/2024 Telephone [facility] [address] [place] [address] Patricia Rocha MD [address] [place], [place] [phone] Chart Prep Social History Tobacco Use Types Packs/Day Years [...] encounter Miscellaneous Notes * Telephone Encounter - Cally Gallo [place] - 04/07/2024 1:27 PM EST Chart Prep Labs: not applicable Images: not applicable Vaccines due: Covid Due and Flu Due Referrals: Urology sent a fax request or notes in case pt has been seen. Screenings: Not Applicable Overdue care gaps: Sbirt, PHQ-9, and Oral Health Chart prep for upcoming appt with Dr.Esparza mera. LB documented in this encounter Plan of Treatment Upcoming Encounters Date Type Department Care Team (Late st Contact Info) Description 04/27/2024 8:15 AM EST Office Visit [facility] [address] [place] [address] Nahum Solano documented as of this encounter Visit Diagnoses Not on filedocumented in this encounter Additional Health Concerns Assessment Noted Time PHQ-9 Depression Total Score: 0 04/07/19 24 10:40 AM EST documented as of this encounter Care Teams Public Information Coordinator Relationship Specialty Start Date End Date Patricia Rocha MD [address] [place] [address] PCP - General Family Medicine 06/01/19 Deric Watts MD [address] [place] [address] Drive 3rd Floor [place] [address] Gastroenterology 02/09/24 documented as of this encounter
--- OUTSIDE RECORDS SUMMARY | 2024-04-20 14:08 | XMS_ITS | Encounter Summary ---
Author Organization [employer] Address [address] [facility] 7t [place] [address] Care Team Providers Care Vision Teacher Name Role Phone Patricia Rocha MD Primary Care Provider [phone] Deric Watts MD Unavailable [phone] Reason for Visit * Reason Comments Pre-visit Planning SDOH Screening negat hammad and Tobacco screening negative Encounter Details Date Type Department Care Team (Late st Contact Info) Description 04/07/2024 Patient Outreach [facility] [address] [place], [place] [phone] Patricia Rocha MD [address] [place], [place] [phone] Pre-visit Planning (SDOH Screening negative and Tobacco screening negative) Social History Tobacco Use Types Packs/Day Years [...] AM EDT documented as of this encounter Progress Notes * Delphine Alvarez - 04/07/2024 2:01 PM EST CC Delphine Kolb placed successful outbound call to patient for pre-visit planning. Patient name and confirmed by Smita(Sister in law). Patient confirms appt date and time, and has transportation arrangements. Biggest concern for appointment at this time is no concerns. Patient advised to bring toappointment a photo id and insurance card. Appropriate screenings completed in anticipation of appointment. documented in this encounter Plan of Treatment Upcoming Encounters Date Type Department Care Team (Late st Contact Info) Description 04/27/2024 8:15 AM EST Office Visit [facility] [address] [place] [address] Nahum Solano documented as of this encounter Visit Diagnoses Not on filedocumented in this encounter Additional Health Concerns Assessment Noted Time PHQ-9 Depression Total Score: 0 04/07/19 24 10:40 AM EST documented as of this encounter Care Teams Vision Teacher Relationship Specialty Start Date End Date Patricia Rocha MD [address] [place] [phone] PCP - General Family Medicine 06/01/19 Deric Watts MD [address] [place] [address] 3rd [place] [address] Gastroenterology 02/09/24 documented as of this encounter
--- OUTSIDE RECORDS SUMMARY | 2024-04-20 14:08 | XMS_ITS | Encounter Summary ---
Author Organization [employer] [facility] Address [address] [place] [address] [address] [place] [address] Care Team Providers Care Waistline Joiner Lockstitch Name Role Phone Patricia Rocha MD Primary Care Provider [phone] Deric Watts MD Unavailable [phone] Raul Alvarez Unavailable [phone] Reason for Referral * Consultation (Routine) - Authorized Specialty Diagnoses / Procedures Referred By Contac t Referred To Contact Optometry Diagnoses CP (cerebral palsy), spastic ([facility]) Patricia Rocha MD [address] [place] [address] Phone: tel: fax: Yesica Vargas, OD [address] [place] [address] Phone: tel: fax: Referral ID Status Reason Start Date Expiration Date Visits Requested Visits Authorized [id number] Authorized Consult and Treat 04/20/2024 04/20/2025 1 1 Encounter Details Date Type Department Care Team (Late st Contact Info) Description 04/20/2024 9:30 AM EST Office Visit [facility] [address], [place] [phone] Patricia Rocha MD [address], [place] [phone] Encounter for immunization (Primary Dx); CP (cerebral palsy), spastic (CMS/HCC); Vitamin D deficiency; Elevated LFTs; Dyslipidemia; Tubular adenoma; Preventative health care; Gastroesophageal reflux disease with esophagitis, unspecified whether hemorrhage; Hypertension, unspecified type; Urinary retention; Chronic constipation; Intellectual disability; Pressure injury of left ankle, stage 1 Social History Tobacco Use Types Packs/Day Years Used Date Smoking Tobacco: Never Passive Smoke Exposure: Never Smokeless Tobacco: Never Alcohol Use Standard [...] AM EDT documented as of this encounter Last Filed Vital Signs Vital Sign Reading Time Taken Comments Blood Pressure 101/62 04/20/2024 9:50 AM EST Pulse 78 04/20/2024 9:50 AM EST Temperature 36.7 ??C (98 ??F) 04/20/2024 9:50 AM EST Respiratory Rate 20 04/20/2024 9:50 AM EST Oxygen Saturation 98% 04/20/2024 9:50 AM EST Inhaled Oxygen Concentration - - Weight - - Height - - Body Mass Index - - documented in this encounter Progress Notes * Patricia Rocha MD - 04/20/2024 9:30 AM EST Images from the original note were not included. Subjective Wayne is a 53 y.o. male with past medical history cerebral palsy, intellectual developmental disability, wheelchair bound who presents to the office today for a routine physical. Accompanied by his guardian, Denzel who uses Tunisian Sign Language to communicate. No concerns today. Pt is in day program at [facility]. He is followed by GI, PM&R and urology. LE swelling much improved. Denzel repots he does have a spot on the back of his ankle he would like me to check. At baseline Wayne can respond to simple commands and understands simple questions. He is non verbal and uses some Tun[place]ian Sign Language because his guardian is Deaf. Aspiration risk: no coughing or choking with regular diet Risk Bowel Obstruction: moving bowels well with daily bowel regimen History of seizures: no Risk of dehydration: relies on others for PO intake, no evidence of dehydration Sign of GERD symptoms: he denies abdominal pain on PPI and can let his caregiver know when he is inpain Risk of sepsis: no current increased risk Social History Tobacco: denied Drugs: none Alcohol: No Sexuality: Denies current sexual activity Suicide/Depression: The patient denies any present symptoms of depression or anxiety. Review of Systems Constitutional: Negative for appetite change, fever and unexpected weight change. HENT: Negative for postnasal drip. Respiratory: Negative for wheezing. Cardiovascular: Negative for chest pain. Genitourinary: Negative for difficulty urinating. Current Outpatient Medications: baclofen (Lioresal) 20 MG tablet, Take 20 mg by mouth., Disp: , Rfl: Bisacodyl EC 5 MG EC tablet, , Disp: , Rfl: D3-1000 25 MCG (1000 UT) capsule, TAKE 1 CAPSULE BY MOUTH DAILY, Disp: 90 capsule, Rfl: 3 lisinopril 40 MG tablet, TAKE 1 TABLET BY MOUTH EVERY MORNING, Disp: 90 tablet, Rfl: 1 loperamide (Imodium A-D) 2 MG tablet, 4 mg., Disp: , Rfl: Methylcellulose, Laxative, 500 MG tablet, 1,000 mg., Disp: , Rfl: pantoprazole (ProtoNix) 40 MG EC tablet, 40 mg., Disp: , Rfl: PEG 7860-XMc-KuKrm-NaCl-NaSulf (PEG-3350/Electrolytes) 236 g reconstituted solution, , Disp: , Rfl: sucralfate (Carafate) 1 GM/10ML suspension, 2 times a day, Disp: , Rfl: tamsulosin (Flomax) 0.4 MG 24 hr capsule, , Disp: , Rfl: tiZANidine (Zanaflex) 4 MG tablet, Take 4 mg by mouth., Disp: , Rfl: No Known Allergies Past Medical History: Diagnosis Date Chronic constipation 04/20/2024 Well controlled on daily bowel regimen CP (cerebral palsy), spastic (CMS/HCC) 09/03/2011 Pt needs assistance with all ADLs and IADLs. Wheelchair bound. He needs a lift van as his brother is no longer able to safely lift him into the regular van. Followed by physical medicine and rehabilitation construction specialist, Dr. Jorge Velazquez Apt 04/20/24 Aspiration risk: no coughing or choking with regular diet Risk Bowel Obstruction: moving bowels well with daily bowel regimen History of seiz Gastroesophageal reflux disease 09/03/2011 Followed by GI, Kellen Gonzalez -lyudmila pantoprazole 40 mg twice a day -Note from 01/2024 reviewed Hypertension 09/03/2011 -Blood pressure is at goal -Continue lifestyle modifications -Continue current medications Hyponatremia 08/04/2022 Intellectual disability 04/20/2024 Lymphedema 08/04/2022 Pain in lower limb 07/26/2012 Tubular adenoma of colon 04/13/202411/2020 scope greater than 1 cm sessile lesion repeat in 3 years Urinary retention 12/09/2023 Seen in ER 12/09/23 for urinary retention, cather placed, will call to see if urology referral done.-seen by Dr. Jacob Alvarez 01/04/24 of [facility]. Flomax started PSA ordered, follow up 6 months. Wheelchair dependence 07/16/2022 Wheelchair Clnic. Clinical information/comments: -Kassy Bender -[phone]. Fax [phone]. Forwheelchiar evaluation. History reviewed. No pertinent surgical history. Family History Problem Relation Name Age of Onset Deafness Brother Cerebral palsy Brother Objective Visit Vitals BP 101/62 (BP Location: Right arm, Patient Position: Sitting, BP Cuff Size: Adult) Pulse 78 Temp 98 ??F (36.7 ??C) (Temporal) Resp 20 SpO2 98% Smoking Status Never Physical Exam Constitutional: Comments: Smiling, interactive, answers simple questions in [place]ian Sign Language (pt is hearing but caregiver is Deaf) Eyes: Comments: Right exopthalmous Cardiovascular: Rate and Rhythm: Normal rate and regular rhythm. Heart sounds: Normal heart sounds. Pulmonary: Effort: Pulmonary effort is normal. Breath sounds: Normal breath sounds. Abdominal: General: Abdomen is flat. Palpations: Abdomen is soft. Tenderness: There is no abdominal tenderness. Musculoskeletal: Cervical back: Normal range of motion and neck supple. Comments: Spastic cerebral palsy, wheelchair bound Lymphadenopathy: Cervical: No cervical adenopathy. Skin: General: Skin is warm and dry. Comments: Dry skin, well healing lesion back of left ankle (see image) LE have evidence of dry skin and 1+pitting edema, improved form past, he is wearing compression stocking and good shoes. Feet examined. Neurological: Mental Status: Mental status is at baseline. Psychiatric: Behavior: Behavior normal. 53 y.o. male physical exam. Problem List Items Addressed This Visit CP (cerebral palsy), spastic (CMS/HCC) Pt needs assistance with all ADLs and IADLs. Wheelchair bound. He needs a lift van as his brother is no longer able to safely lift him into the regular van. Followed by physical medicine and rehabilitation construction specialist, Dr. Jorge Velazquez Apt 04/20/24 Aspiration risk: no coughing or choking with regular diet Risk Bowel Obstruction: moving bowels well with daily bowel regimen History of seizures: no Risk of dehydration: relies on others for PO intake, no evidence of dehydration Sign of GERD symptoms: he denies abdominal pain on PPI and can let his caregiver know when he is inpain Risk of sepsis: no current increased risk Relevant Orders Basic Metabolic Panel (Completed) TSH with Reflex to Free T4 CBC auto differential (Completed) [facility] (Developmental Disability Exam) Vitamin D deficiency Relevant Orders Vitamin D, 25-Hydroxy, Total, Immunoassay Tubular adenoma Tubular adenoma with Dr. Watts on colonoscopy 11/15/2020. Repeat Feb 04, 2024 no polyp repeat 5 years due to hx adenomatous polyp Preventative health care -next physical exam due after 04/20/25 -eye care referral placed to [facility] 04/20/24 -dental home is [facility] -healthcare proxy guardian paperwork in process 04/07/23 Gastroesophageal reflux disease Followed by [facility], Kellen Gonzalez -lyudmila pantoprazole 40 mg twice a day -Note from 01/2024 reviewed Hypertension -Blood pressure is at goal -Continue lifestyle modifications -Continue current medications Urinary retention Seen in ER 12/09/23 for urinary retention, cather placed, will call to see if urology referral done. -seen by Dr. Jacob Alvarez 01/04/24 of [facility]. Flomax started PSA ordered, follow up 6 months. Chronic constipation Well controlled on daily bowel regimen Intellectual disability Pressure injury of left ankle, stage 1 -noted on physical 04/20/24. Caregiver to monitor. Keep area padded. Other Visit Diagnoses Encounter for immunization - Primary Relevant Orders FLU VACCINE TRIVALENT (Fluarix) 6 mo + (Completed) PCV-20 VACCINE 6 wks + (Completed) COVID-19 VACCINE (Pfizer) 1186-0049 12 yrs + (Completed) Elevated LFTs Relevant Orders Hepatic Function Panel (Completed) Dyslipidemia Relevant Orders Lipid Panel, Standard (Completed) Physical exam -Normal growth and development. -Anticipatory guidance discussed. -Preventative care / harm reduction discussed. Follow up in about 6 months (around 10/18/2024) for chornic conditions. documented in this encounter Miscellaneous Notes * Assessment & Plan Note - Patricia Rocha MD - 04/20/2024 11:57 AM EST Associated Problem(s): Pressure injury of left ankle, stage 1 -noted on physical 04/20/24. Caregiver to monitor. Keep area padded. * Assessment & Plan Note - Patricia Rocha MD - 04/20/2024 11:54 AM EST Associated Problem(s): Chronic constipation Well controlled on daily bowel regimen * Assessment & Plan Note - Patricia Rocha MD - 04/20/2024 11:52 AM EST Associated Problem(s): Preventative health care -next physical exam due after 04/20/25 -eye care referral placed to [facility] 04/20/24 -dental home is [facility] -healthcare proxy guardian paperwork in process 04/07/23 * Assessment & Plan Note - Patricia Rocha MD - 04/20/2024 11:52 AM EST Associated Problem(s): Urinary retention Seen in ER 12/09/23 for urinary retention, cather placed, will call to see if urology referral done. -seen by Dr. Jacob Alvarez 01/04/24 of [facility]. Flomax started PSA ordered, follow up 6 months. * Assessment & Plan Note - Patricia Rocha MD - 04/20/2024 11:51 AM EST Associated Problem(s): Tubular adenoma Tubular adenoma with Dr. Watts on colonoscopy 11/15/2020. Repeat Feb 04, 2024 no polyp repeat 5 years due to hx adenomatous polyp * Assessment & Plan Note - Patricia Rocha MD - 04/20/2024 11:48 AM EST Associated Problem(s): Hypertension -Blood pressure is at goal -Continue lifestyle modifications -Continue current medications * Assessment & Plan Note - Patricia Rocha MD - 04/20/2024 11:48 AM EST Associated Problem(s): Gastroesophageal reflux disease Followed by Kellen HESS pantoprazole 40 mg twice a day -Note from 01/2024 reviewed * Assessment & Plan Note - Patricia Rocha MD - 04/20/2024 11:48 AM EST Associated Problem(s): CP (cerebral palsy), spastic (CMS/HCC) Pt needs assistance with all ADLs and IADLs. Wheelchair bound. He needs a lift van as his brother is no longer able to safely lift him into the regular van. Followed by physical medicine and rehabilitation construction specialist, Dr. Jorge Velazquez Apt 04/20/24 Aspiration risk: no coughing or choking with regular diet Risk Bowel Obstruction: moving bowels well with daily bowel regimen History of seizures: no Risk of dehydration: relies on others for PO intake, no evidence of dehydration Sign of GERD symptoms: he denies abdominal pain on PPI and can let his caregiver know when he is inpain Risk of sepsis: no current increased risk documented in this encounter Plan of Treatment Upcoming Encounters Date Type Department Care Team (Late st Contact Info) Description 04/27/2024 8:15 AM EST Office Visit [facility] [address] [place] [address] Nahum Solano Scheduled Referrals Name Type Priority Associated Diagnoses Order Schedule Referral to [facility] (Developmental Disability Exam) Outpatient Referral Routine CP (cerebral palsy), spastic (CMS/HCC) Expected: 04/20/2024 (Approximate), Expires: 04/20/2025 documented as of this encounter Procedures Procedure Name Priority Date/Time Associated Diagnosis Comments VITAMIN D,25-OH,TOTAL,IA Routine 04/20/2024 10:34 AM EST Vitamin D deficiency TSH W/REFLEX TO FT4 Routine 04/20/2024 1 0:34 AM EST CP (cerebral palsy), spastic (CMS/HCC) CBC WITH AUTO DIFFERENTIAL Routine 04/20/2024 10:34 AM EST CP (cerebral palsy), spastic (CMS/HCC) HEPATIC FUNCTION PANEL Routine 04/20/2024 10:34 AM EST Elevated LFTs LIPID PANEL, STANDARD Routine 04/20/2024 10:34 AM EST Dyslipidemia BASIC METABOLIC PANEL Routine 04/20/2024 10:34 AM EST CP (cerebral palsy), spastic (CMS/HCC) documented in this encounter Results * Vitamin D, 25-Hydroxy, Total, Immunoassay (04/20/2024 10:34 AM EST) Vitamin D 25-OH Total 37.8 >30 ng/mL [facility] Comment:Health Based Referen ce Values*< 20 ng/mL Inmlzapit17-74 ng/mL Insufficient> 30 ng/mL Sufficient*Mary Lou ROCHA. [...] 10:34 AM EST 04/20/2024 11:04 AM EST us Patricia Rocha MD LAB BLOOD ORDERABLES Final Result [facility] [address] [place] [phone] * (ABNORMAL) CBC auto differential (04/20/2024 10:34 AM EST) White Blood Count 8.5 4.8 - 10.8 X10*3/uL [facility] Red Blood Count 4.60 4.60 - 5.80 X10*6/uL [facility] Hemoglobin 14.1 14.0 - 18.0 g/dl [facility] Hematocrit 40.6(L) 42.0 - 52.0 % [facility] Mean Corpuscular Volume 88.3 80.0 - 98.0 fL [facility] Mean Corpuscular Hemoglobin 30.7 27.0 - 33.0 pg [facility] Mean Corpuscular HGB Conc 34.7 31.0 - 36.0 g/dl [facility] Red Cell Distribution Width 13.1 11.0 - 16.0 % [facility] Platelet Count 327 160 - 400 X10*3/uL [facility] Mean Platelet Volume 9.9 9.4 - 12.4 fL [facility] Neutrophils Percent Auto 56.1 45 - 73 % [facility] Imm Gran Pct Auto 1.1(H) 0.0 - 0.4 % [facility] Lymphocytes Percent Auto 25.1 20 - 40 % [facility] Monocytes Percent Auto 14.5(H) 2 - 11 % [facility] Eosinophils Percent Auto 2.7 0 - 4 % [facility] Basophils Percent Auto 0.5 0 - 2 % [facility] NRBC Pct Auto 0.0 0.0 - 0.2 /100WBC [facility] Neutrophils Absolute Auto 4.8 2.0 - 8.3 x10*3/uL [facility] Imm Gran Abs Auto 0.09(H) 0.00 - 0.03 X10*3/uL [facility] Lymphocytes Absolute Auto 2.1 1.2 - 4.9 X10*3/uL [facility] Monocytes Absolute Auto 1.2 0.1 - 1.2 X10*3/uL [facility] Eosinophils Absolute Auto 0.2 0.0 - 0.4 X10*3/uL [facility] Basophils Absolute Auto 0.0 0.0 - 0.2 X10*3/uL [facility] NRBC Abs Auto 0.000 0.0 - 0.012 X10*3/uL [facility] Blood Venous blood specimen / Unknown 04/20/2024 10:34 AM EST 04/20/2024 11:04 AM EST Patricia Rocha MD LAB BLOOD ORDERABLES Final Result Performing Organization Address [facility]/ZIP Co de Phone Number [facility] [address] [place] [phone] * TSH with Reflex to Free T4 (04/20/2024 10:34 AM EST) TSH reflex Free T4 1.02 0.32 - 4.0 uIU/mL [facility] Blood 04/20/2024 10:3 4 AM EST 04/20/2024 11:04 AM EST Patricia Rocha MD LAB BLOOD ORDERABLES Final Result Performing Organization Address [facility] Phone Number [facility] [address] [place] [phone] * (ABNORMAL) Basic Metabolic Panel (04/20/2024 10:34 AM EST) Sodium 137 135 - 145 mmol/L [facility] Potassium 4.3 3.3 - 5.1 mmol/L [facility] Chloride 105 96 - 108 mmol/L [facility] Carbon Dioxide 26 22 - 29 mmol/L [facility] Anion Gap 10(L) 12 - 20 [facility] Urea Nitrogen (BUN) 11 9 - 16 mg/dL [facility] Creatinine, Serum 0.62 0.5 - 1.4 mg/dL [facility] Estimated Glomerular Filt Rate >60 [facility] Comment:Chronic Kidney Disea se: Estimated GFR < 60 mL/min/[id number] Kidney Disease: Estimated GFR < 15 mL/min/1.73m2 Glucose 81 60 - 115 mg/dL [facility] Calcium 9.0 8.4 - 10.2 mg/dL [facility] Blood Venous blood specimen / Unknown 04/20/2024 10:34 AM EST 04/20/2024 11:04 AM EST Patricia Rocha MD LAB BLOOD ORDERABLES Final Result Performing Organization Address [facility] de Phone Number [facility] [address] [place] [phone] * (ABNORMAL) Lipid Panel, Standard (04/20/2024 10:34 AM EST) Triglycerides 228(H) <150 mg/dL [facility] Comment:Desirable Triglyceri de: less than 150 mg/dLBorderline High Triglyceride 150-199 mg/dLHigh Triglyceride: 200-499 mg/dLVery High Triglyceride: greater than or equal to 5OO mg/dL Cholesterol 173 <200 mg/dL [facility] Comment:Desirable Cholestero l: less than 200 mg/dLBorderline High Cholesterol: 200-239 mg/dLHigh Cholesterol: greater than 239 mg/dL LDL Cholesterol Calculated 102(H) <100 mg/dL [facility] Comment:Desirable LDL: less than 100 mg/dLNear Optimal/Above Optimal LDL: 110- 129 mg/dLBorderline High LDL: 130-159 mg/dLHigh LDL: 160-189 mg/dLVery High LDL: greater than or equal to 190 mg/dL HDL Cholesterol 26(L) >40 mg/dL [facility] Comment:Desirable HDL: great er than 40 mg/dL Note: This HDL assay may give artificially low results in patients with liver disease. Blood Venous blood specimen / Unknown 04/20/2024 10:34 AM EST 04/20/2024 11:04 AM EST Patricia Rocha MD LAB BLOOD ORDERABLES Final Result Performing Organization Address City/[facility] Co de Phone Number [facility] [address] [place] [phone] * Hepatic Function Panel (04/20/2024 10:34 AM EST) Bilirubin, Total 0.4 0.0 - 1.0 mg/dL [facility] Bilirubin, Direct 0.1 0.0 - 0.5 mg/dL [facility] Aspartate Amino Transferase 34 5 - 37 U/L [facility] Alanine Aminotransferase 30 0 - 40 U/L [facility] Total Protein 7.6 6.5 - 8.0 g/dL [facility] Albumin Level 3.9 3.5 - 5.0 g/dL [facility] Alkaline Phosphatase 77 39 - 117 U/L [facility] Blood Venous blood specimen / Unknown 04/20/2024 10:34 AM EST 04/20/2024 11:04 AM EST Patricia Rocha MD LAB BLOOD ORDERABLES Final Result [facility] [address] [place] [phone] documented in this encounter Visit Diagnoses Diagnosis Encounter for immunization- Primary CP (cerebral palsy), spastic (CMS/HCC) Unspecified infantile cerebral palsy Vitamin D deficiency Elevated LFTs Other abnormal blood chemistry Dyslipidemia Other and unspecified hyperlipidemia Tubular adenoma Benign neoplasm of unspecified site Preventative health care Routine general medical examination at a health care facility Gastroesophageal reflux disease with esophagitis, unspecified whether hemorrhage Hypertension, unspecified type Urinary retention Unspecified retention of urine Chronic constipation Unspecified constipation Intellectual disability Unspecified mental retardation Pressure injury of left ankle, stage 1 documented in this encounter Additional Health Concerns Assessment Noted Time PHQ-9 Depression Total Score: 0 04/20/19 25 9:51 AM EST documented as of this encounter Care Teams Waistline Joiner Lockstitch Relationship Specialty Start Date End Date Patricia Rocha MD [address] [place] [phone] PCP - General Family Medicine 06/01/19 Deric Watts MD [address] [place] [address] Gastroenterology 02/09/24 Raul Alvarez [address] [facility] [address] [place] [phone] Urology 04/13/24 Dr. Jorge Velazquez MD [facility] Physical Medicine and Rehabilitation 04/20/24 documented as of this encounter
--- OUTSIDE RECORDS SUMMARY | 2024-04-20 14:08 | XMS_ITS | Encounter Summary ---
Author Organization [employer] Address [address] [facility] [address] [place] [address] Care Team Providers Care Medical Oncologist Name Role Phone Patricia Rocha MD Primary Care Provider [phone] Deric Watts MD Unavailable [phone] Raul Alvarez Unavailable [phone] Encounter Details Date Type Department Care Team (Latest Contact Info) Description 04/20/2024 Travel Social History Tobacco Use Types Packs/Day Years [...] Description 04/27/2024 8:15 AM EST Office Visit [facility] [address] [place] [address] Nahum Solano documented as of this encounter Visit Diagnoses Not on filedocumented in this encounter Additional Health Concerns Assessment Noted Time PHQ-9 Depression Total Score: 0 04/20/19 9:51 AM EST documented as of this encounter Care Teams Medical Oncologist Relationship Specialty Start Date End Date Patricia Rocha MD [address] [place] [address] PCP - General Family Medicine 06/01/19 Deric Watts MD [address] [place] [address] [address] [place] [address] Gastroenterology 02/09/24 Raul Alvarez [address] [phone] Urology 04/13/24 Dr. Jorge Velazquez MD [facility] Physical Medicine and Rehabilitation 04/20/24 documented as of this encounter
--- OUTSIDE RECORDS SUMMARY | 2024-04-20 14:08 | XMS_ITS | Encounter Summary ---
Author Organization [employer] Address [address] [facility] 7t [place] [address] Care Team Providers Care Mechanical Systems Designer Name Role Phone Patricia Rocha MD Primary Care Provider [phone]- [phone] Deric Watts MD Unavailable [phone] Raul Alvarez Unavailable [phone] Encounter Details Date Type Department Care Team (Late st Contact Info) Description 01/21/2024 Telephone [facility] MEDICINE [address] [place] [address] Patricia Rocha MD [address] [place], [place] [phone] Social History Tobacco Use Types Packs/Day Years [...] Description 04/27/2024 8:15 AM EST Office Visit [facility] PEDIATRIC DENTAL [address] [place] [address] Nahum Solano documented as of this encounter Visit Diagnoses Not on filedocumented in this encounter Additional Health Concerns Assessment Noted Time PHQ-9 Depression Total Score: 0 04/07/19 24 10:40 AM EST documented as of this encounter Care Teams Mechanical Systems Designer Relationship Specialty Start Date End Date Patricia Rocha MD [address] [place] [address] PCP - General Family Medicine 06/01/19 Deric Watts MD [address] [place] [address] Drive 3rd [place] [address] Gastroenterology 02/09/24 Raul Alvarez [address] [address] Urology 04/13/24 Dr. Jorge Velazquez MD [facility] Physical Medicine and Rehabilitation 04/20/24 documented as of this encounter
--- OUTSIDE RECORDS SUMMARY | 2024-04-20 14:08 | XMS_ITS | Encounter Summary ---
Author Organization [facility] Address [address] [place] [address] 7t [place] [address] Care Team Providers Care Online Communications Manager Name Role Phone Patricia Rocha MD Primary Care Provider +- [phone] Deric Watts MD Unavailable [phone] Raul Alvarez Unavailable [phone] Encounter Details Date Type Department Care Team (Latest Contact Info) Description 06/13/2018 Abstract [facility] CONVERSIONS Dental, Provider, DDS Social History Tobacco Use Types Packs/Day Years [...] Description 04/27/2024 8:15 AM EST Office Visit [facility] PEDIATRIC DENTAL [address] [place] [address] Nahum Solano documented as of this encounter Visit Diagnoses Not on filedocumented in this encounter Care Teams Online Communications Manager Relationship Specialty Start Date End Date Patricia Rocha MD [address] [place] [address] PCP - General Family Medicine 06/01/19 Deric Watts MD [address] 3rd Floor [place] [address] Gastroenterology 02/09/[address] 100 [facility] [address] [place] [address] Urology 04/13/24 Dr. Jorge Velazquez MD [facility] Physical Medicine and Rehabilitation 04/20/24 documented as of this encounter
--- OUTSIDE RECORDS SUMMARY | 2024-04-20 14:08 | XMS_ITS | Encounter Summary ---
Author Organization [facility] Address [address] [place] [address] 7t [place] [address] Care Team Providers Care Credit Collections Manager Name Role Phone Patricia Rocha MD Primary Care Provider [phone] Deric Watts MD Unavailable [phone] Raul Alvarez Unavailable [phone] Encounter Details Date Type Department Care Team (Late st Contact Info) Description 05/07/[address] [facility] MEDICINE [address] [place] [address] Patricia Rocha MD 230 [place], [place] [phone] Social History Tobacco Use Types Packs/Day Years [...] 8:15 AM EST Office Visit [facility] PEDIATRIC DENTAL [address] [place] [phone] Nahum Solano documented as of this encounter Procedures Procedure Name Priority Date/Time Associated Diagnosis Comments HM COLONOSCOPY Routine 11/15/2020 documented in this encounter Results * Colonoscopy (11/15/2020) Colonoscopy tubular adenoma with Dr. Watts us Historical Provider HEALTH MAINTENANCE Final Result documented in this encounter Visit Diagnoses Not on filedocumented in this encounter Care Teams Credit Collections Manager Relationship Specialty Start Date End Date Patricia Rocha MD 230 [place] [address] PCP - General Family Medicine 06/01/19 Deric Watts MD 11 [facility] 3rd [place] [address] Gastroenterology 02/09/24 Raul Alvarez [address] [address] Urology 04/13/24 Dr. Jorge Velazquez MD [facility] Physical Medicine and Rehabilitation 04/20/24 documented as of this encounter
--- OUTSIDE RECORDS SUMMARY | 2024-04-20 14:08 | XMS_ITS | Encounter Summary ---
Author Organization [employer] Address 75 [facility] 7t [place] [address] Care Team Providers Care Floor Finisher Helper Name Role Phone Patricia Rocha MD Primary Care Provider [phone] Deric Watts MD Unavailable [phone] Reason for Visit * Reason Onset Date Comments Med Refill 03/23/2024 Encounter Details Date Type Department Care Team (Late st Contact Info) Description 03/23/2024 Refill [facility] MED & PEDS [address] [place] [address] Patricia Rocha MD 230 [place] [address] Primary hypertension Social History Tobacco Use Types Packs/Day Years [...] encounter Miscellaneous Notes * Telephone Encounter - Mary Ann Perea LPN - 03/23/2024 2:16 PM EST Next appointment 04/20/24. documented in this encounter Plan of Treatment Upcoming Encounters Date Type Department Care Team (Late st Contact Info) Description 04/27/2024 8:15 AM EST Office Visit [facility] PEDIATRIC DENTAL [address] [place] [address] Nahum Solano documented as of this encounter Visit Diagnoses Diagnosis Primary hypertension Unspecified essential hypertension documented in this encounter Additional Health Concerns Assessment Noted Time PHQ-9 Depression Total Score: 0 04/07/19 24 10:40 AM EST documented as of this encounter Care Teams Floor Finisher Helper Relationship Specialty Start Date End Date Patricia Rocha MD 230 [place] [address] PCP - General Family Medicine 06/01/19 Deric Watts MD [address] 3rd [place] [address] Gastroenterology 02/09/24 documented as of this encounter
== END 2024-04-20 10:33 | disposition home or self-care (01) ==
LOC: HO.HHCL 10:32
PROVIDERS: Visit Provider Family Medicine
DX: E55.9 Vitamin D deficiency, unspecified (principal); R79.89 Other specified abnormal findings of blood chemistry; E78.5 Hyperlipidemia, unspecified; G80.1 Spastic diplegic cerebral palsy
CPT/HCPCS: 36415; 80048; 80061; 80076; 82306; 84443; 85025

== ENCOUNTER 2024-10-11 12:53 | Outpatient (AMB) | payer MEDICAID, SELFPAY ==
[2024-10-11 12:57] VITALS: BP 131/75; PULSE 97
--- NOTE | 2024-10-11 12:57 | A.OFFVIS_ITS ---
Vital Signs 10/11/24 12:57 Height 5 ft 8 in BMI Reason not done Patient refused/unable BP 131/75 Blood Pressure Location Lt brachial Position Sitting Pulse 97 Intake Visit Reasons: 30 m, needs ASL int. GERD + diarrhea mgmt. Intake Note: Wayne returns to in office visit today in follow up of GERD and diarrhea. CC: Per patient's brother the patient is doing well and denies having any GI concerns today. Wilderness Guide Required: Yes Wilderness Guide Language: [place] Sign Language Accompanied by: Brother Allergies No Known Allergies Allergy (Verified 10/11/24 13:05) HPI HPI 30 m, needs ASL int. GERD + diarrhea mgmt.: Details: Assessment & Plan (1) Tubular adenoma of colon: Comment: 11/2020 scope greater than 1 cm sessile lesion repeat in 3 years Code(s): D12.6 - Benign neoplasm of colon, unspecified Category: Medical (2) GERD (gastroesophageal reflux disease): Code(s): K21.9 - Gastro-esophageal reflux disease without esophagitis Category: Medical (3) Diarrhea: Code(s): R19.7 - Diarrhea, unspecified Category: Medical (4) Family history of polyps in the colon: Code(s): Z83.719 - Family history of colon polyps, unspecified Category: Medical (5) Pre-op examination: Code(s): Z01.818 - Encounter for other preprocedural examination Category: Medical Plan [phone] (rail signal mechanic line). SAFETY EQUIPMENT TESTING SPECIALIST #[id number] He remains satisfied with the Carafate 2 pills twice a day along with Imodium and fiber for diarrhea and is pantoprazole 40 mg twice a day for his heartburn. He is due for repeat colonoscopy this year, they are agreeable to having this scheduled. There are no prior problems with anesthesia or sedation. They deny any cardiac or respiratory problems. No ID problems. He had large TA's and has a FXH of colon polyps. Orders: Orders Colonoscopy - GI Use Only Today D12.6 - Benign neoplasm of colon, unspecified Medications: New peg 3350-electrolytes 236-22.74-6.74 -5.86 gram (Golytely) until fecal effluent is clear; do not exceed a total volume of 2,000 mL 240 mL PO Q10M 4,000 mL 0RF 1 day Z12.11 - Encounter for screening for malignant neoplasm of colon bisacodyl (Dulcolax (bisacodyl)) 10 mg (2 x 5 mg) PO BEDTIME 4 tabs 0RF 2 days Refilled methylcellulose (laxative) (Fiber Therapy (methylcellulose)) 1,000 mg (2 x 500 mg) PO BID 112 tabs 6RF K58.0 - Irritable bowel syndrome with diarrhea pantoprazole 40 mg PO BID 60 tabs 6RF K21.9 - Gastro-esophageal reflux disease without esophagitis sucralfate 2 grams (2 x 1 gram) PO BID 112 tabs 6RF K58.0 - Irritable bowel syndrome with diarrhea loperamide (Anti-Diarrheal (loperamide)) 4 mg (2 x 2 mg) PO BID 112 tabs 6RF for diarrhea K58.0 - Irritable bowel syndrome with diarrhea COLONOSCOPY 02/04/24 Findings: Terminal Ileum: Not evaluated Cecum: Normal Ascending Colon: Normal Transverse Colon: Normal Descending Colon: Normal Sigmoid Colon: Moderate diverticulosis Rectum: Normal Ano-rectum: Moderate internal hemorrhoids Impression and Post Procedure Diagnosis: Colonoscopy Findings: No polyps were detected Moderate diverticulosis seen in the left colon Moderate hemorrhoids on retroflexed exam. Plan: Pt has a FU appointment on 02/15/24 with Kellen Gonzalez NP, Repeat Colonoscopy in 5 years due to a history of adenomatous colon polyps. TODAYS VISIT ASL #[id number] He remains satisfied with the Carafate 2 pills twice a day along with Imodium and fiber for diarrhea and is pantoprazole 40 mg twice a day for his heartburn. He is agreeable to a 5 year follow-up for the colonoscopy. The procedure was well tolerated. The results were explained and the patient is agreeable to the follow-up interval as stated. The bowel pattern has returned to normal. Education was provided to tell any 1st degree relatives about their findings to be sure that they are screened by age 45. Educated that they will be put on a recall list when it is time for their repeat scope but should they move out of state or away from the hospital they will need to remember along with their primary to repeat the procedure in a timely fashion to avoid any adverse complications. Return office visit in 6 months [facility] Medical History COVID-19 vaccine series completed Diarrhea Mute Mentally challenged Cerebral palsy HTN (hypertension) Surgical History Hx of colonoscopy History of esophagogastroduodenoscopy (EGD) Family History Father Heart problem Mother Breast cancer Social History Are you a primary career development director to a significant other at home: No Do you presently have visiting nurse or other home services: No Alcohol intake: never Patient Tobacco Use Status: Never used Tobacco Advance Directives Date on File: 12/21/19 Review of Systems Const Denies fatigue, Denies fever(s), Denies night sweats, Denies poor appetite and Denies weight loss Eyes Details: glasses Reports requires corrective lenses ENT Reports Normal hearing present, Denies dysphagia, Reports hearing loss, Denies odynophagia, Denies throat swelling and Denies tongue swelling Card Reports no additional complaints Resp Reports no additional complaints GI Details: Denies abdominal pain, Denies melena, Denies bloating, Denies hematochezia, Denies constipation, Denies GI cramping, Denies dysphagia, Denies excessive flatus, Denies early satiety, Reports heartburn, Denies diarrhea, Reports loose stools, Denies nausea, Denies odynophagia, Denies vomiting and Denies hematemesis Skin/Breast Denies pruritus, Denies lesions, Denies rash and Denies jaundice Neuro Reports Normal hearing present and Denies Abnormal speech present Endo Denies fatigue Aller/Immun Denies throat swelling and Denies tongue swelling Physical Exam Vital Signs: Last Vital Signs Pulse 97 10/11/24 12:57 BP 131/75 10/11/24 12:57 Const General: cooperative, no acute distress, well developed and well groomed Nutritional Appearance: average body habitus and well nourished Orientation/consciousness: oriented to person, oriented to place and oriented to time Limitations: language barrier, physical limitations, wheelchair and other limitations HEENT Head: Yes normocephalic and Yes atraumatic Eyes General: appearance normal, both eyes and all related structures Pupils: Equal, round and reactive pupils present Neck Neck: Yes normal visual inspection and Yes no lymphadenopathy Thyroid: Thyroid normal Resp Effort & Inspection: normal respiratory effort and able to speak in complete sentences Auscultation: clear to auscultation bilaterally Cardio Rate: regular rate Rhythm: regular rhythm Heart sounds: Normal, physiologic split S2 sound present Peripheral pulses: radial pulses present and posterior tibial pulses present GI Inspection: No distended and No Abdominal panniculus present Palpation (GI): Soft to palpation, nontender, no guarding, not rigid and No hepatosplenomegaly present Percussion: Yes normal to percussion Auscultation: normal bowel sounds Rectal Exam - Male: Yes deferred Skin General skin exam: no rashes or lesions noted, turgor normal, skin not dry, no jaundice, No spider nevi and no striae Rashes: no rashes Nails: normal Neuro General: oriented to person, oriented to place and oriented to time Cranial nerves: Yes Equal, round and reactive pupils present and Yes Normal hearing present Speech: No Abnormal speech present Extrem General: No clubbing, No cyanosis, No edema and Yes Dysmorphic Psych Appearance: grossly normal and well kempt Mental Status: other Speech and movement: Mute speech present Affect: Animated affect present Attitude: cooperative Thought process: Other thought process findings present Thought content: other Insight: Poor insight present (Psych) Judgement: Poor judgement present (Psych) Assessment & Plan Assessment & Plan (1) GERD (gastroesophageal reflux disease): Code(s): K21.9 - Gastro-esophageal reflux disease without esophagitis Category: Medical (2) Irritable bowel syndrome with diarrhea: Code(s): K58.0 - Irritable bowel syndrome with diarrhea Category: Medical (3) Tubular adenoma of colon: Comment: 01/2024=neg study repeat 5 years; 11/2020 scope greater than 1 cm sessile lesion repeat in 3 years Code(s): D12.6 - Benign neoplasm of colon, unspecified Category: Medical Plan [facility] #[id number] He remains satisfied with the Carafate 2 pills twice a day along with Imodium and fiber for diarrhea and is pantoprazole 40 mg twice a day for his heartburn. He is agreeable to a 5 year follow-up for the colonoscopy. The procedure was well tolerated. The results were explained and the patient is agreeable to the follow-up interval as stated. The bowel pattern has returned to normal. Education was provided to tell any 1st degree relatives about their findings to be sure that they are screened by age 45. Educated that they will be put on a recall list when it is time for their repeat scope but should they move out of state or away from the hospital they will need to remember along with their primary to repeat the procedure in a timely fashion to avoid any adverse co mplications. Return office visit in 6 months Medications: Refilled loperamide (Anti-Diarrheal (loperamide)) 4 mg (2 x 2 mg) PO BID 112 tabs 0RF for diarrhea K58.0 - Irritable bowel syndrome with diarrhea methylcellulose (laxative) (Citrucel) 1,000 mg (2 x 500 mg) PO BID 112 tabs 0RF K58.0 - Irritable bowel syndrome with diarrhea pantoprazole 40 mg PO BID 60 tabs 0RF K21.9 - Gastro-esophageal reflux disease without esophagitis sucralfate 2 grams (2 x 1 gram) PO BID 112 tabs 0RF K58.0 - Irritable bowel syndrome with diarrhea Coding Level of Care Code Est Pt Level 3 (99628) Diagnoses GERD (gastroesophageal reflux disease) K21.9 Irritable bowel syndrome with diarrhea K58.0 Tubular adenoma of colon D12.6
--- OUTSIDE RECORDS SUMMARY | 2024-10-11 13:16 | XMS_ITS | Encounter Summary ---
Author Organization [employer] Address 75 [facility] 7t [place] [address] Care Team Providers Care Sales Marketing Director Name Role Phone Patricia Rocha MD Primary Care Provider [phone] Deric Watts MD Unavailable [phone] Raul Alvarez Unavailable [phone] Ryan Corbett Unavailable [phone] Reason for Visit * Reason Onset Date Comments Durable Medical Equipment 09/29/2024 Wheelc hair Cushion and Armrest Pads Encounter Details Date Type Department Care Team (Late st Contact Info) Description 09/29/2024 Telephone [facility] MEDICINE [address] [place], [place] [phone] Patricia Rocha MD [address] [place], [place] [phone] Durable Medical Equipment (Wheelchair Cushion and Armrest Pads) Social History Tobacco Use Types Packs/Day Years [...] encounter Miscellaneous Notes * Telephone Encounter - Tamela Chua - 10/06/2024 3:52 PM EDT DME order was generated and sent to [facility] via Fax with supporting documentation. Confirmation was uploaded to Media. * Telephone Encounter - Constance Craven RN - 09/29/2024 10:07 AM EDT [employer] - 1 - 2 ^from caregiver * Telephone Encounter - Constance Craven RN - 09/29/2024 10:02 AM EDT Pt's caregiver walked in requesting new wheelchair cushion and cushions for both arms of the wheelchair due to elbow injury. documented in this encounter Plan of Treatment Upcoming Encounters Date Type Department Care Team (Late st Contact Info) Description 10/26/2024 8:15 AM EDT Office Visit [facility] PEDIATRIC DENTAL [address] [place] [address] Harini Montilla documented as of this encounter Visit Diagnoses Not on filedocumented in this encounter Additional Health Concerns Assessment Noted Time PHQ-9 Depression Total Score: 0 04/20/19 9:51 AM EST documented as of this encounter Care Teams Sales Marketing Director Relationship Specialty Start Date End Date Patricia Rocha MD [address] [place] [address] PCP - General Family Medicine 06/01/19 Deric Watts MD [address] [facility] [address] 3rd [place] [address] Gastroenterology 02/09/24 Raul Alvarez [address] [place] [address] Urology 04/13/24 Ryan Corbett PA [address] [place] [address] Urology 07/05/24 Dr. Jorge Velazquez MD [facility] Physical Medicine and Rehabilitation 04/20/24 documented as of this encounter
== END 2024-10-11 13:27 | disposition home or self-care (01) ==
LOC: HO.HGI 12:53
PROVIDERS: PCP Family Medicine; Visit Provider Nurse Practitioner
DX: K21.9 Gastro-esophageal reflux disease without esophagitis (principal); K58.0 Irritable bowel syndrome with diarrhea; D12.6 Benign neoplasm of colon, unspecified
CPT/HCPCS: 99213

== ENCOUNTER → 2024-10-11 12:53 | Outpatient (BNVA) | payer MEDICAID, SELFPAY | PROVIDERS: PCP Family Medicine; Visit Provider Nurse Practitioner | DX: K21.9 Gastro-esophageal reflux disease without esophagitis (principal); K58.0 Irritable bowel syndrome with diarrhea; D12.6 Benign neoplasm of colon, unspecified | CPT/HCPCS: 99212 ==

== ENCOUNTER 2025-01-29 09:03 | Outpatient (REF) | payer MEDICAID, SELFPAY ==
--- NOTE | ~2025-01-29 | XR_ITS ---
EXAMINATION: XR FINGER, RIGHT CLINICAL INFORMATION: PAIN injury right ring finger COMPARISON: None available. TECHNIQUE: 4 views of the right foot digit. FINDINGS: Fourth digit: Oblique mildly displaced fracture of the mid/distal middle phalanx. There is a slight undulation/depression of the radial aspect of the middle phalanx distal articular surface, which could be related to trauma or erosive changes. Mild soft tissue swelling. No acute fractures otherwise seen. Radiocarpal and is maintained. Negative variance. Abnormal soft tissue calcification. XR/XR finger RT min 2V IMPRESSION: Fracture of the fourth middle phalanx, as detailed above. Electronically signed by: Zander Paris MD 01/29/2025 10:51 AM TYESHA
--- OUTSIDE RECORDS SUMMARY | 2025-01-29 08:40 | XMS_ITS | Encounter Summary ---
Author Organization [employer] [facility] Address [address] [facility] 7t [place] [address] Care Team Providers Care Bellperson Name Role Phone Patricia Rocha MD Primary Care Provider + [phone] Deric Watts MD Unavailable [phone] Raul Alvarez Unavailable [phone] Ryan Corbett Unavailable [phone] June Unavailable Reason for Referral * Consultation (Urgent) - Pending Review Specialty Diagnoses / Procedures Referred By Tapan larson Referred To Contact Orthopaedic Surgery Diagnoses Closed nondisplaced fracture of middle phalanx of right ring finger, initial encounter Rocky Olmos MD [address] [place] [address] Phone: tel: fax: Referral ID Status Reason Start Date Expiration Date Visits Requested Visits Authorized [id number] Pending Review Specialty Services Required 01/29/2026 1 1 Reason for Visit * Reason Comments Hand Pain Encounter Details Date Type Department Care Team (Late st Contact Info) Description 01/29/2025 8:40 AM EST Office Visit [facility] [address] [place] [phone] Closed nondisplaced fracture of middle phalanx of right ring finger, initial encounter (Primary Dx); Pain of finger of right hand; Injury of finger of right hand, initial encounter Social History Tobacco Use Types Packs/Day Years [...] Sign Reading Time Taken Comments Blood Pressure 145/83 01/29/2025 8:48 AM EST Pulse 75 01/29/2025 8:48 AM EST Temperature 36.5 C (97.7 F) 01/29/2025 8:48 AM EST Respiratory Rate 18 01/29/2025 8:48 AM EST Oxygen Saturation 100% 01/29/2025 8:48 AM EST Inhaled Oxygen Concentration - - Weight - - Height - - Body Mass Index - - documented in this encounter Plan of Treatment Upcoming Encounters Date Type Department Care Team (Late st Contact Info) Description 01/30/2025 10:00 AM EST Immunization [facility] MEDICINE [address] [place] [phone] 02/23/2025 11:00 AM EST Office Visit [facility] MEDICINE [address] [place] [phone] Patricia Rocha MD [address] [place] [phone] Scheduled Orders Name Type Priority Associated Diagnoses Orde r Schedule XR Fingers 2+ Views Right Imaging Routine Pain of finger of right hand Injury of finger of right hand, initial encounter Expected: 01/29/2025, Expires: 01/29/2026 Scheduled Referrals Name Type Priority Associated Diagnoses Orde r Schedule Referral to Orthopaedic Surgery Outpatient Referral Urgent Closed nondisplaced fracture of middle phalanx of right ring finger, initial encounter Expected: 01/29/2025 (Approximate), Expires: 01/29/2026 documented as of this encounter Visit Diagnoses Diagnosis Closed nondisplaced fracture of middle phalanx of right ring finger, initial encounter- Primary Pain of finger of right hand Injury of finger of right hand, initial encounter documented in this encounter Additional Health Concerns Assessment Noted Time PHQ-9 Depression Total Score: 0 04/20/19 25 9:51 AM EST documented as of this encounter Care Teams Bellperson Relationship Specialty Start Date End Date Patricia Rocha MD [address] [place] [address] PCP - General Family Medicine 06/01/19 Deric Watts MD [address] [place] [address] 3rd [place] [address] Gastroenterology 02/09/24 Raul Alvarez [address] [address] Urology 04/13/24 Ryan Corbett PA 100 [facility] 120 [place] [address] Urology 07/05/24[address] [place] [address] Drive 3rd [place] [address] Gastroenterology 10/11/24 Dr. Jroge Velazquez MD [facility] Physical Medicine and Rehabilitation 04/20/24 documented as of this encounter
--- OUTSIDE RECORDS SUMMARY | 2025-01-29 09:40 | XMS_ITS | Encounter Summary ---
Author Organization [facility] Address [address] [facility] 7t [place] [address] Care Team Providers Care Bellman Name Role Phone Patricia Rocha MD Primary Care Provider Deric Watts MD Unavailable [phone] Raul Alvarez Unavailable [phone] Ryan Corbett Unavailable [phone] June Unavailable Reason for Visit * Reason Onset Date Comments FYI 03/07/2024 Encounter Details Date Type Department Care Team (Late st Contact Info) Description 03/07/2024 Telephone [facility] [address] [place], [place] [phone] Patricia Rocha MD [address] [place], [place] [phone] FYI Social History Tobacco Use Types Packs/Day Years [...] t he electric, gas, oil or water [employer] threatened to shut off services in your [...] sister in law. Contact to brother via lang interpreter. Per brother pt has an area of bruising that is tender to touch on left leg x 2 months ago. Per brother pt has bilateral leg swelling at baseline. No uneven swelling. No CP or SOB per brother. No injury. Per brother is planning to come into [facility] tomorrow. Reviewed [facility] operating hours and that wait times [...] Info) Description 01/30/2025 10:00 AM EST Immunization [facility] [address] [place] [address] 02/23/2025 11:00 AM EST Office Visit [facility] [address] [place] [address] Patricia Rocha MD [address] [place] [address] documented as of this encounter Visit Diagnoses Not on filedocumented in this encounter Additional Health Concerns Assessment Noted Time PHQ-9 Depression Total Score: 0 04/07/19 24 10:40 AM EST documented as of this encounter Care Teams Bellman Relationship Specialty Start Date End Date Patricia Rocha MD [address] [place] [address] PCP - General Family Medicine 06/01/19 Deric Watts MD [address] [place] [address] Drive 3rd [place] [address] Gastroenterology 02/09/24 Raul Alvarez [address] [employer] [address] [place] [phone] Urology 04/13/24 Ryan Corbett PA [address] [place] [address] Urology 07/05/[address] [facility] [address] [place] [address] Drive 3rd [place] [address] Gastroenterology 10/11/24 Dr. Jorge Velazquez MD [facility] Physical Medicine and Rehabilitation 04/20/24 documented as of this encounter
--- OUTSIDE RECORDS SUMMARY | 2025-01-29 09:40 | XMS_ITS | Encounter Summary ---
Author Organization [employer] [facility] Address [address] [facility] 7t [place] [address] Care Team Providers Care Quality Assurance Supervisor Final Name Role Phone Patricia Rocha MD Primary Care Provider + [phone] Deric Watts MD Unavailable [phone] Raul Alvarez Unavailable [phone] Ryan Corbett Unavailable [phone] June Unavailable Encounter Details Date Type Department Care Team (Latest Contact Info) Description 06/13/2018 Abstract [facility] Dental, Provider, DDS Social History [...] Info) Description 01/30/2025 10:00 AM EST Immunization [facility] [address] [place] [address] 02/23/2025 11:00 AM EST Office Visit [facility] [address] [place] [phone] Patricia Rocha MD [address] [place] [address] [phone] documented as of this encounter Visit Diagnoses Not on filedocumented in this encounter Care Teams Quality Assurance Supervisor Final Relationship Specialty Start Date End Date Patricia Rocha MD [address] [place] [address] PCP - General Family Medicine 06/01/19 Deric Watts MD [address] [place] [address] Gastroenterology 02/09/24 Raul Alvarez [address] [place] [phone] Urology 04/13/24 Ryan Corbett PA [address] [place] [phone] Urology 07/05/24June [address] [place] [address] Gastroenterology 10/11/24 Dr. Jorge Velazquez MD [facility] Physical Medicine and Rehabilitation 04/20/24 documented as of this encounter
--- OUTSIDE RECORDS SUMMARY | 2025-01-29 09:40 | XMS_ITS | Encounter Summary ---
Author Organization [facility] Address [address] [facility] 7t [place] [address] Care Team Providers Care Lumber Sorter Name Role Phone Patricia Rocha MD Primary Care Provider [phone] Deric Watts MD Unavailable [phone] Raul Alvarez Unavailable [phone] Ryan Corbett Unavailable [phone] June Unavailable Encounter Details Date Type Department Care Team (Late st Contact Info) Description 05/07/[address] [address] Patricia Rocha MD [address] [place] [phone] Social History Tobacco Use Types Packs/Day Years [...] Info) Description 01/30/2025 10:00 AM EST Immunization [address] [address] 02/23/2025 11:00 AM EST Office Visit [address] [address] Patricia Rocha MD [address] [place] [address] documented as of this encounter Procedures Procedure Name Priority Date/Time Associated Diagnosis Comments COLONOSCOPY Routine 11/15/2020 documented in this encounter Results * Colonoscopy (11/15/2020) Colonoscopy tubular adenoma with Dr. Watts us Historical Provider Mobile [employer] MAINTENANCE Final Result documented in this encounter Visit Diagnoses Not on filedocumented in this encounter Care Teams Lumber Sorter Relationship Specialty Start Date End Date Patricia Rocha MD [address] [place] [address] PCP - General Family Medicine 06/01/19 Deric Watts MD [facility] 3rd [place] [address] Gastroenterology 02/09/24 Raul Alvarez [address] [place] [phone] Urology 04/13/24 Ryan Corbett PA [address] [place] [phone] Urology 07/05/24June [address] [place] [address] 3[address] [place] [address] Gastroenterology 10/11/24 Dr. Jorge Velazquez MD [facility] Physical Medicine and Rehabilitation 04/20/24 documented as of this encounter
--- OUTSIDE RECORDS SUMMARY | 2025-01-29 09:40 | XMS_ITS | Encounter Summary ---
Author Organization [facility] Address [address] [place] [address] 7t [place] [address] Care Team Providers Care Cytologist Name Role Phone Patricia Rocha MD Primary Care Provider [phone] Deric Watts MD Unavailable [phone] Raul Alvarez Unavailable [phone] Ryan Corbett Unavailable [phone] June Unavailable Encounter Details Date Type Department Care Team (Late st Contact Info) Description [facility] [address] [place] [address] Patricia Rocha MD [address] [place] [address] [phone] Social History Tobacco Use Types Packs/Day Years [...] Info) Description 01/30/2025 10:00 AM EST Immunization [facility] [address] [place] [phone] 02/23/2025 11:00 AM EST Office Visit [address] [address] Patricia Rocha MD [address] [place] [address] documented as of this encounter Visit Diagnoses Not on filedocumented in this encounter Care Teams Cytologist Relationship Specialty Start Date End Date Patricia Rocha MD [address] [place] [address] PCP - General Family Medicine 06/01/19 Deric Watts MD [address] [place] [address] Gastroenterology 02/09/24 Raul Alvarez [address] [place] [phone] Urology 04/13/24 Ryan Corbett PA [address] [place] [address] Urology 07/05/24 Lisa June [address] [place] [address] Gastroenterology 10/11/24 Dr. Jorge Velazquez MD [facility] Physical Medicine and Rehabilitation 04/20/24 documented as of this encounter
--- OUTSIDE RECORDS SUMMARY | 2025-01-29 09:40 | XMS_ITS | Encounter Summary ---
Author Organization [employer] Address 75 [facility] 7t [place] [address] Care Team Providers Care Sales Agent Name Role Phone Patricia Rocha MD Primary Care Provider + [phone] Deric Watts MD Unavailable [phone] Raul Alvarez Unavailable [phone] Ryan Corbett Unavailable [phone] June Unavailable Encounter Details Date Type Department Care Team (Latest Contact Info) Description 01/29/2025 Travel Social History Tobacco Use Types Packs/Day [...] Info) Description 01/30/2025 10:00 AM EST Immunization [facility] [address] [place] [address] 02/23/2025 11:00 AM EST Office Visit [facility] [address] [place] [address] Patricia Rocha MD [address] [place] [address] documented as of this encounter Visit Diagnoses Not on filedocumented in this encounter Additional Health Concerns Assessment Noted Time PHQ-9 Depression Total Score: 0 04/20/19 25 9:51 AM EST documented as of this encounter Care Teams Sales Agent Relationship Specialty Start Date End Date Patricia Rocha MD [address] [place] [address] PCP - General Family Medicine 06/01/19 Deric Watts MD [address] [facility] [address] 3rd [place] [address] Gastroenterology 02/09/24 Raul Alvarez [address] [phone] Urology 04/13/24 Ryan Corbett PA 100 [facility] [address] [place] [address] Urology 07/05/24[facility] [address] [place] [address] Drive 3rd [place] [address] Gastroenterology 10/11/24 Dr. Jorge Velazquez MD [facility] Physical Medicine and Rehabilitation 04/20/24 documented as of this encounter
--- OUTSIDE RECORDS SUMMARY | 2025-01-29 09:40 | XMS_ITS | Clinical Summary ---
Author Organization [employer] Address [address] [facility] [address] [place] [address] Care Team Providers Care Document Preparer Microfilming Name Role Phone Patricia Rocha MD Primary Care Provider + [phone] Deric Watts MD Unavailable [phone] Raul Alvarez Unavailable [phone] Ryan Corbett Unavailable [phone] Unavailable Allergies No known active allergies Medications tamsulosin (Flomax) 0.4 MG 24 hr capsuleIndications :Urinary retention 5 Active baclofen (Lioresal) 20 MG tabletIndications: CP (cerebral palsy), spastic (CMS/HCC) (HCC) Take 20 mg by mouth. 4 Active tiZANidine (Zanaflex) 4 MG tabletIndications: CP (cerebral palsy), spastic (CMS/HCC) (HCC) Take 4 mg by mouth. 4 Active loperamide (Imodium A-D) 2 MG tabletIndications: Diarrhea, unspecified type 4 mg. 4 Active PEG 9125-CAp-XwLdn-NaC l-NaSulf (PEG-3350/Electrol ytes) 236 g reconstituted solutionIndication s:Constipation, unspecified constipation type 4 Active Bisacodyl EC 5 MG EC tabletIndications: Constipation, unspecified constipation type 4 Active Methylcellulose, Laxative, 500 MG tabletIndications: Constipation, unspecified constipation type 1,000 mg. 4 Active sucralfate (Carafate) 1 GM/10ML suspensionIndicati ons:Gastroesophage al reflux disease with esophagitis, unspecified whether hemorrhage 2 times a day 08/10/19 2 4 Active pantoprazole (ProtoNix) 40 MG EC tabletIndications: Gastroesophageal reflux disease with esophagitis, unspecified whether hemorrhage 40 mg. 4 Active D3-1000 25 MCG (1000 UT) capsuleIndications :Vitamin D deficiency TAKE 1 CAPSULE BY MOUTH DAILY 30 capsule 11 5 Active lisinopril 40 MG tabletIndications: Primary hypertension TAKE 1 TABLET BY MOUTH EVERY MORNING 90 tablet 1 5 Active acetaminophen (Tylenol) 500 MG tablet Take 2 tablets (1,000 mg) by mouth every 6 (six) hours if needed for moderate pain or fever for up to 25 doses. 40 tablet 5 Active Active Problems Problem Noted Date Diagnosed Date Dyslipidemia 10/04/2024 Overview (10/04/2024): Lab Results Component Value Date CHOL 173 04/20/2024 CHOL 180 04/07/2023 TRIG 228 (H) 04/20/2024 TRIG 185 (H) 04/07/2023 HDL 26 (L) 04/20/2024 HDL 28 (L) 04/07/2023 LDLCHOLCAL 102 (H) 04/20/2024 LDLCHOLCAL 115 (H) 04/07/2023 -continue lifestyle modification Assessment & Plan (10/04/2024 11:38 AM EDT): Lab Results Component Value Date CHOL 173 04/20/2024 CHOL 180 04/07/2023 TRIG 228 (H) 04/20/2024 TRIG 185 (H) 04/07/2023 HDL 26 (L) 04/20/2024 HDL 28 (L) 04/07/2023 LDLCHOLCAL 102 (H) 04/20/2024 LDLCHOLCAL 115 (H) 04/07/2023 -continue lifestyle modification Pressure ulcers of skin of multiple topographic sites 10/02/2024 Overview (10/02/2024): -rx for new cushion for wheelchair seat and bilateral am rests as old ones are warn causing pressure ulcers Assessment & Plan (10/04/2024 11:38 AM EDT): -rx for new cushion for wheelchair seat and bilateral am rests as old ones are warn causing pressure ulcers Assessment & Plan (10/02/2024 10:56 AM EDT): -rx for new cushion for wheelchair seat and bilateral am rests as old ones are warn causing pressure ulcers Benign prostatic hyperplasia without lower urinary tract symptoms 07/05/2024 Overview (07/05/2024): Followed by [facility], seen 07/03/24 with Blaise Grand Chenier PA-C -bladder scan at next visit, PSA before next urologyappointment Assessment & Plan (10/04/2024 11:38 AM EDT): Followed by [facility], seen 07/03/24 with Blaise Aric PA-C -bladder scan at next visit, PSA before next urologyappointment Chronic constipation 04/20/2024 Overview (04/20/2024): Well controlled on daily bowel regimen Assessment & Plan (04/20/2024 11:54 AM EST): Well controlled on daily bowel regimen Intellectual disability 04/20/2024 Pressure injury of left ankle, stage 1 Overview (04/20/2024): -noted on physical 04/20/24. Caregiver to monitor. Keep area padded. Assessment & Plan (04/20/2024 11:57 AM EST): -noted on physical 04/20/24. Caregiver to monitor. Keep area padded. Urinary retention 12/09/2023 Overview (04/13/2024): Seen in ER 12/09/23 for urinary retention, cather placed, will call to see if urology referral done. -seen by Dr. Jacob Alvarez 01/04/24 of [facility]. Flomax started PSA ordered, follow up 6 months. Assessment & Plan (10/04/2024 11:38 AM EDT): Seen in ER 12/09/23 for urinary retention, cather placed, will call to see if urology referral done. -seen by Dr. Jacob Alvarez 01/04/24 of [facility]. Flomax started PSA ordered, follow up 6 months. Assessment & Plan (04/20/2024 11:52 AM EST): Seen in ER 12/09/23 for urinary retention, cather placed, will call to see if urology referral done. -seen by Dr. Jacob Alvarez 01/04/24 of [facility]. Flomax started PSA ordered, follow up 6 months. Tremor 04/07/2023 Overview (04/07/2023): -new tremor, borther concerned nuerological disease . Not noted on exam, possible due to underlying CP, referral request to pts Physical Rehab Assessment & Plan (07/01/2023 10:01 AM EDT): -new tremor, borther concerned nuerological disease . Not noted on exam, possible due to underlying CP, referral request to pts Physical Rehab Assessment & Plan (04/07/2023 11:42 AM EST): -new tremor, borther concerned nuerological disease . Not noted on exam, possible due to underlying CP, referral request to pts Physical Rehab Preventative health care 10/05/2022 Overview (04/20/2024): -next physical exam due after 04/20/25 -eye care referral placed to [facility] 04/20/24 -dental home is [facility] -healthcare proxy guardian paperwork in process 04/07/23 Assessment & Plan (10/04/2024 11:38 AM EDT): -next physical exam due after 04/20/25 -eye care referral placed to [facility] 04/20/24 -dental home is [facility] -healthcare proxy guardian paperwork in process 04/07/23 Assessment & Plan (04/20/2024 11:52 AM EST): -next physical exam due after 04/20/25 -eye care referral placed to [facility] 04/20/24 -dental home is [facility] -healthcare proxy guardian paperwork in process 04/07/23 Assessment & Plan (07/01/2023 9:59 AM EDT): -next physical exam due after 04/07/2024 -eye care facilitated by none -dental home is [facility] -healthcare proxy guardian paperwork in process 04/07/23 Assessment & Plan (04/07/2023 11:16 AM EST): -next physical exam due after 04/07/2024 -eye care facilitated by none -dental home is [facility] -healthcare proxy guardian paperwork in process 04/07/23 Assessment & Plan (10/15/2022 8:56 AM EDT): -next physical exam due after 02/16/2023. -eye care facilitated by -dental home is Class 1 obesity 08/04/2022 Wheelchair dependence 07/16/2022 Overview (08/20/2022): Wheelchair Clnic. Clinical information/comments: -[facility] [phone]. Fax [phone]. For wheelchiar evaluation. Assessment & Plan (10/04/2024 11:38 AM EDT): Assessment & Plan (07/01/2023 9:58 AM EDT): Wheelchair Clnic. [facility]/comments[facility] [phone]. Fax [phone]. For wheelchiar evaluation. Assessment & Plan (04/07/2023 9:14 AM EST): Wheelchair Clnic. Clinical information/comments: -[phone]. Fax [phone]. For wheelchiar evaluation. Assessment & Plan (10/15/2022 8:57 AM EDT): Wheelchair Clnic. Clinical information/comments: -[phone]. Fax [phone]. For wheelchiar evaluation. Assessment & Plan (08/20/2022 3:41 PM EDT): Wheelchair Clnic. Clinical information/comments: -[phone]. Fax [phone]. For wheelchiar evaluation. Tubular adenoma 07/16/2022 Overview (04/20/2024): Tubular adenoma with Dr. Watts on colonoscopy 11/15/2020. Repeat Feb 04, 2024 no polyp repeat 5 years due to hx adenomatous polyp Assessment & Plan (10/04/2024 11:38 AM EDT): Tubular adenoma with Dr. Watts [...] pain 10/19/2016 Asthenia 01/08/2012 Diarrhea 10/27/2011 Overview (10/11/2024): Followed by K[facility], last visit 10/11/24 Continue: - Carafate 2 pills twice a [...] options with him. CP (cerebral palsy), spastic (CMS/HCC) 2 Overview (04/20/2024): Pt needs assistance with all ADLs and IADLs. Wheelchair bound. He needs a lift van as his brother is no longer able to safely lift him into the regular van. Followed by physical medicine and software qa system specialist, Dr. Jorge Velazquez Apt 04/20/24 Aspiration [...] no current increased risk Assessment & Plan (10/04/2024 11:38 AM EDT): Pt needs assistance with all ADLs and IADLs. Wheelchair bound. He needs a lift van as his brother is no longer able to safely lift him into the regular van. Followed by physical medicine and software qa system specialist, Dr. Jorge Velazquez Apt 04/20/24 Aspiration [...] regular van. Followed by physical medicine and software qa system specialist, Dr. Jorge Velazquez Apt 04/20/24 Aspiration [...] regular van. Gastroesophageal reflux disease 09/03/2011 Overview (10/11/2024): Followed by Kellen HESSitnradu pantoprazole 40 mg twice a day -Note from 10/11/24 reviewed Assessment & Plan (04/20/2024 11:48 AM EST): Followed by Kellen HESSers -conitnue pantoprazole 40 mg twice a day -Note from 01/2024 reviewed Assessment & Plan (07/01/2023 9:57 AM EDT): Followed by Kellen HESS -conitnue pantoprazole 40 mg twice a day -Note from 01/2024 reviewed Assessment & Plan (04/07/2023 11:40 AM EST): Followed by JIMENA, Kellen Gonzalez -lyudmila pantoprazole 40 mg twice a day -Note from 01/2024 reviewed Assessment & Plan (08/20/2022 3:40 PM EDT): Continue PPI per GI Hypertension 09/03/2011 Overview (04/07/2023): -Blood pressure is at goal -Continue lifestyle modifications -Continue current medications Assessment & Plan (10/04/2024 11:38 AM EDT): -Blood pressure is at goal [...] Problem Noted Date Diagnosed Date Resolved Date Tubular adenoma of colon 04/13/2024 Overview (04/13/2024): 11/2020 scope greater than 1 cm sessile lesion repeat in 3 years Physical exam 04/07/2023 10/04/2024 Overview (04/07/2023): -Normal growth and development. -Anticipatory guidance discussed. -Preventative care / harm reduction discussed. Assessment & Plan (07/01/2023 10:00 AM EDT): -Normal growth and development. -Anticipatory guidance discussed. -Preventative care / harm reduction discussed. Assessment & Plan (04/07/2023 9:55 AM EST): -Normal growth and development. -Anticipatory guidance discussed. -Preventative care / harm reduction discussed. Hyponatremia 08/04/2022 04/07/2023 Lymphedema 08/04/2022 04/07/2023 Overview (08/20/2022): Assessment & Plan (08/20/2022 3:42 PM EDT): Pain in lower limb 07/26/2012 4 Encounters Date Type Department Care Team Description 01/29/2025 8:40 AM EST Office Visit [facility] [address] [place] [phone] Closed nondisplaced fracture of middle phalanx of right ring finger, initial encounter (Primary Dx); Pain of finger of right hand; Injury of finger of right hand, initial encounter 01/29/2025 Travel 12/28/2024 Telephone [facility] [address] [place] [address] [phone] Patricia Rocha MD Referral 11/22/[address] [phone] Patricia Rocha MD Durable Medical Equipment (DME Request: Wipes) from Last 3 Months Immunizations Immunization Administration Dates Next Due Hep A, Adult 11/13/2011,10/27/2011,03/31/2011 Hep B, adult 10/27/2011,05/05/2011,03/31/2011 Influenza injectable quadriv alent IIV4 with preservative 01/09/2019,12/16/2017,02/09/2017,2015 Influenza injectable quadriv alent preservative free 04/07/2023,12/25/2021,01/15/2021,2019 Influenza, IIV3, injectable 03/02/2014 Influenza, Split (incl. lupe fied surface antigen) 12/28/2012,03/07/2012 Influenza, seasonal, injecta ble, preservative free 04/20/2024 Moderna Covid-19 Vaccine 12+ 03/08/2021,06/20/19 21,05/22/2020 Pfizer Covid-19 Vaccine 12+ 04/20/2024,01/17/202 4 Pneumococcal Conjugate PCV 20 04/20/2024 Td (adult), [...] - - Weight 54.4 kg (120 lb) 10/04/2024 11:35 AM EDT Height 157.5 cm (5' 2 ) 04/20/2024 9:37 AM EST Body Mass Index 21.95 04/20/2024 9:37 AM EST Plan of Treatment Upcoming Encounters Date Type Department Care Team (Late st Contact Info) Description 01/30/2025 10:00 AM EST Immunization [facility] [address] [place] [phone] 02/23/2025 11:00 AM EST Office Visit [facility] [address] [place] [phone] Patricia Rocha MD [address] [place] [phone] Health Maintenance Due Date Last Done Comments CT Colonography 1972 Dental X-Ray: Full Mouth 1972 FIT DNA/Cologuard 1972 FIT 1972 FOBT 1972 Sigmoidoscopy 1972 Disability Screening 1972 Dental Prophylaxis 10/26/2024 04/27/2024, 1 03/29/2023, 07/26/2023, Additional history exists Influenza Vaccine (#1) 2024 , 04/07/2023, 12/25/2021, Additional history exists SDOH Screening 04/07/2025 04/07/2024 Alcohol/Substance Use Screening 04/20/2025 04/20/2024 Depression Screening 04/20/2025 04/20/2024, 04/20/19 25 Family Planning (PISQ) 04/20/2025 04/20/2024 Dental X-Ray: Bitewings 04/28/2025 04/27/19 25, 07/26/2023, 08/09/2020, Additional history exists Dental Oral Exam 04/29/2025 10/26/2024, 08/2024, 01/28/2024, Additional history exists Tobacco Screening 01/29/2026 01/29/2025 Colonoscopy 02/03/2029 02/04/2024, 11/15/2020 Colorectal Cancer Screening [...] Completed 04/20/2024, , 03/08/2021, Additional history exists Pneumococcal Vaccine: 50+ Years Completed 04/20/2024 HIB Vaccines Aged Out No longer eligi ble based on patient's age to complete this topic HIV Screening Discontinued HPV Vaccines Aged Out No longer eligi ble based on patient's age to complete this topic IPV Vaccines Aged Out No longer eligi ble based on patient's age to complete this topic Meningococcal B Vaccine Aged Out No l onger eligible based on patient's age to complete [...] Procedure Name Priority Date/Time Associated Diagnosis Comments PERIODIC ORAL EVALUATION - ESTABLISHED PATIENT Routine 10/26/2024 8:15 AM EDT PROPHYLAXIS - ADULT Routine 04/27/2024 8 :15 AM EST BITEWINGS - 4 RADIOGRAPHIC IMAGES Routine 04/27/2024 8:15 AM EST LIPID PANEL, STANDARD Routine 04/20/2024 10:34 AM EST Dyslipidemia HM COLONOSCOPY Routine 02/04/2024 ZZZ HISTORICAL HEPATITIS C AB W/REFL TO HCV RNA, QN, PCR Routine 02/16/2022 11:54 AM EST from Last 3 Months or Most Recently Relevant to Health Maintenance Results * (ABNORMAL) Lipid Panel, Standard (04/20/2024 10:34 AM EST) Triglycerides 228(H) <150 mg/dL [facility] Comment:Desirable Triglyceri de: less than 150 mg/dLBorderline High Triglyceride 150-199 mg/dLHigh Triglyceride: 200-499 mg/dLVery High Triglyceride: greater than or equal to 5OO mg/dL Cholesterol 173 <200 mg/dL [facility] Comment:Desirable Cholestero l: less than 200 mg/dLBorderline High Cholesterol: 200-239 mg/dLHigh Cholesterol: greater than 239 mg/dL LDL Cholesterol Calculated 102(H) <100 mg/dL [facility] Comment:Desirable LDL: less than 100 mg/dLNear Optimal/Above Optimal LDL: 110- 129 mg/dLBorderline High LDL: 130-159 mg/dLHigh LDL: 160-189 mg/dLVery High LDL: greater than or equal to 190 mg/dL HDL Cholesterol 26(L) >40 mg/dL [facility] Comment:Desirable HDL: great er than 40 mg/dL Note: This HDL assay may give artificially low results in patients with liver disease. Blood Venous blood specimen / Unknown 04/20/2024 10:34 AM EST 04/20/2024 11:04 AM EST us Patricia Rocha MD LAB BLOOD ORDERABLES Final Result [facility] [address] [place] [phone] * Colonoscopy (02/04/2024) Colonoscopy Normal Normal Historical Provider MD HEALTH MAINTENANCE Final Result * HEPATITIS C AB W/REFL TO HCV RNA, QN, PCR (02/16/2022 11:54 AM EST) HEPATITIS C ANTIBODY NON-REACTI VE NON-REACT RORY [facility] INDEX 0.07 <1.00 [facility] Comment: HCV antibody was non-reactive. There is no laboratory evidence of HCV infection. In most cases, no further action is required. However, if recent HCV exposure is suspected, a test for HCV RNA (test code 36523) is suggested. For additional information please refer to http://education.[employer]/faq/XJY03b2 (This link is being provided for informational/ educational purposes only.) 02/16/2022 11:5 4 AM EST Patricia Rocha MD HISTORICAL/NON ORDERABLE L ABS Final Result [facility] from Last 3 Months or Most Recently Relevant to Health Maintenance Insurance [facility] MEDICAID DDS ADULT Advance Directives Documents on File Type Date Recorded Patient Residential Sales Associate Expl anation Power of Hammerer Helper 05/31/2023 11:15 AM Decr ee of Guardianship Care Teams Document Preparer Microfilming Relationship Specialty Start Date End Date Aj, MD Patricia [address] [place] [phone] PCP - General Family Medicine 06/01/19 Deric Watts MD [address] [place] [address] [address] [place] [phone] Gastroenterology 02/09/24 Raul Alvarez [address] [place] [phone] Urology 04/13/24 Ryan Corbett PA [address] [place] [phone] Urology 07/05/24 Kellen Gonzalez [address] [place] [address] [address] Floor JOVANNY Burton [address] Gastroenterology 10/11/24 Dr. Jorge Velazquez MD [facility] Physical Medicine and Rehabilitation 04/20/24
== END 2025-01-29 09:04 | disposition home or self-care (01) ==
LOC: HO.HHCX 09:03
PROVIDERS: Visit Provider Emergency Medicine
DX: M79.644 Pain in right finger(s) (principal); S69.91XA Unspecified injury of right wrist, hand and finger(s), initial encounter
CPT/HCPCS: 73140

== ENCOUNTER → 2025-01-29 09:04 | Outpatient (BNV) | payer MEDICAID, SELFPAY | PROVIDERS: Visit Provider Radiology Diagnostic Ultrasound | DX: S60.944A Unspecified superficial injury of right ring finger, initial encounter (principal); R52 Pain, unspecified | CPT/HCPCS: 73140 ==